=== PATIENT | female | born 1950 | race Caucasian/White ===

== ENCOUNTER 2021-08-15 17:46 | Emergency (ER) | payer MEDICARE, OTHER, SELFPAY ==
--- NOTE | 2021-08-15 17:50 | ED.EAR ---
HPI - Ear Problem General Chief complaint: Ear Stated complaint: ear pain Time Seen by Provider: 08/15/21 17:50 Source: patient and RN notes reviewed History of Present Illness HPI Narrative: Patient is a 70-year-old female who presents the urgent care with complaints of left ear pain. Patient states been off and on for the past 3 to 4 days. She has been taking Zyrtec and Tylenol for the pain. Patient states she does have seasonal allergies and takes Zyrtec off and on. Denies of any other upper respiratory symptoms with the exception of postnasal drainage. Denies of fever, chills, nausea, vomiting. No other acute complaints. No acute distress noted. Patient aware of the plan of care. Some parts of this dictation were generated by voice recognition software and may contain typographical and/or grammatical inaccuracies. Related Data Home Medications Medication Instructions Recorded Confirmed vitamin B complex 1 tablet PO DAILY 02/03/20 08/15/21 glucosamine 750 uc-ponjycoibeg-rtv 1 tablet PO BID 02/17/21 08/15/21 no1 644 mg-C 30 mg-juan 1 mg tablet multivitamin 1 tablet PO DAILY 02/17/21 08/15/21 Allergies Allergy/AdvReac Type Severity Reaction Status Date / Time Sulfa (Sulfonamide Allergy Unknown Rash Verified 08/15/21 17:56 Antibiotics) Review of Systems Review of Systems: CONSTITUTIONAL: Denies fever, chills, or sweats. EYES: Denies visual changes, redness, or discharge. ENT: Denies rhinorrhea, congestion, sore throat. Reports of left otalgia CARDIOVASCULAR: Denies chest pain, palpitations, or edema. RESPIRATORY: Denies cough or dyspnea. GASTROINTESTINAL: Denies abdominal pain, nausea, vomiting, or diarrhea. GENITOURINARY: Denies dysuria or hematuria. SKIN: Denies rash or itching. MUSCULOSKELETAL: Denies back pain, joint pain, or myalgia. NEUROLOGIC: Denies headache, numbness, or weakness. All other systems reviewed are negative, except as documented in HPI. [facility] Past Medical History Medical History (Updated 08/15/21 @ 18:06 by BIJAL Cha) Allergies Breast cancer Cataract Cervical dystonia Cervical vertebral fusion CVA (cerebral vascular accident) Former smoker Hemorrhoids History of TIA (transient ischemic attack) HLD (hyperlipidemia) HTN (hypertension) Obesity (BMI 30-39.9) GUANAKO (obstructive sleep apnea) Osteoarthritis Osteopenia Ruptured cervical disc repaired 2004 TIA (transient ischemic attack) Surgical History Surgical History (Updated 02/17/21 @ 08:41 by Karmen Del Rosario [facility]) H/O foot surgery 1975 History of bilateral mastectomy 1988 History of neck surgery cervical disc surgery 06 and 07 History of skin surgery basal 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 2012 S/P peripheral artery angioplasty with stent placement Left leg Family History Family History (Updated 02/03/20 @ 07:27 by Rosalie Cantu [facility]) Father Lung cancer History of angina Mother Diabetes mellitus Hypertension Sibling Hypertension Heart disease Social History Social History Smoking status: Former smoker Smoking end date: 11/27/74 Alcohol intake: never Comments At the time of my signature, I reviewed and agree with the nursing past medical, surgical, social, and family history. There is no relevant family history pertinent to the patient complaint. Exam Narrative: GENERAL: This is a well-nourished, well-developed patient, in no apparent distress. HEAD: normocephalic, atraumatic. EYES: PERRL. Sclera clear/white. Vision is grossly intact. EARS: External ears normal, auditory canals clear and without drainage, mild to moderate fluid noted behind bilateral TMs without otitis, TMs normal without perforation. Hearing grossly intact. NOSE: External nose normal with no obvious nasal discharge, nares without redness, no rhinorrhea. THROAT: Mucous membranes moist, posterior pharynx clear. Mild postnasal drainage NECK: Chronic torti
[2021-08-15 17:55] VITALS: BP 162/81; PULSE 87; RESP 16; TEMP 36.6; O2SAT 98
== END 2021-08-15 18:10 | disposition home or self-care (01) ==
PROVIDERS: Emergency Provider Nurse Practitioner Family; PCP Internal Medicine
DX: H92.02 Otalgia, left ear (principal); I10 Essential (primary) hypertension; E78.5 Hyperlipidemia, unspecified; Z86.73 Personal history of transient ischemic attack (TIA), and cerebral infarction without residual deficits; Z87.891 Personal history of nicotine dependence
CPT/HCPCS: 99213; G0463

== ENCOUNTER → 2021-12-28 10:04 | Outpatient (CLI) | payer MEDICARE, OTHER, SELFPAY ==
--- NOTE | ~2021-12-28 | XR_ITS ---
XR chest 2V DATE: 12/28/2021 11:00 INDICATION: Personal history of malignant neoplasm of the breast TECHNIQUE: PA and lateral views COMPARISON: 08/28/2017 two-view chest FINDINGS: Normal heart size. No hilar or mediastinal enlargement. The lungs are clear of infiltrate o r consolidation. No pleural effusion or pulmonary vascular congestion. Breast shadows are absent consistent with history of bilateral mastectomy. Status post anterior cervical spine surgical fusion. Diffuse osteopenia. IMPRESSION: Status post bilateral mastectomy; no active cardiopulmonary disease Reviewed, dictated and finalized at location B. [employer]AT[employer] ASSISTANT
--- NOTE | ~2021-12-28 | DEXA_ITS ---
Bone Density Report Name: CUATE DOMINGUEZ Age: 71 Sex: Female Ethnicity: White Date of : 1950 Indication: postmenopausal; screening for osteoporosis; parental hip fracture; height loss; Referring Provider: Devang, Marisela Study: Bone densitometry was performed. Exam Date: December 28, 2021 Accession number: [id number] Bone Density: Region BMD T-score Z-score Classification AP Spine (L2, L3, L4) 1.046 -0.3 2.0 Normal Femoral Neck (Left) 0.696 -1.4 0.5 Osteopenia Total Hip (Left) 0.851 -0.7 0.9 Normal Femoral Neck (Right) 0.727 -1.1 0.8 Osteopenia Total Hip (Right) 0.870 -0.6 1.0 Normal Total Hip Mean 0.861 -0.7 1.0 Normal World Health Organization criteria for BMD impression classify patients as: Normal (T-score at or above -1.0), Osteopenia (T-score between -1.0 and -2.5), or Osteoporosis (T-score at or below -2.5). 10-year Fracture Risk(1): Major Osteoporotic Fracture 15% Hip Fracture 4.2% Reported Risk Factors: [place] (), Neck BMD=0.696, BMI=35.7, parental fracture (1) FRAX(R) Version 3.08. Fracture probability calculated for an untreated patient. Fracture probability may be lower if the patient has received treatment. Previous Exams: Region Exam Age BMD T-score BMD Change BMD Change Date g/cm2 vs Baseline vs Previous AP Spine(L2, L3, L4) 12/28/2021 71 1.046 -0.3 0.131* 0.056* 10/23/2017 67 0.990 -0.8 0.075* 0.012 10/19/2015 65 0.978 -0.9 0.063* 0.032* 10/03/2013 63 0.946 -1.2 0.031* 0.031* 08/12/2011 60 0.915 -1.5 Total Hip(Left) 12/28/2021 71 0.851 -0.7 0.032* 0.027* 10/23/2017 67 0.824 -1.0 0.004 0.021 10/19/2015 65 0.802 -1.1 -0.017 -0.022 10/03/2013 63 0.825 -1.0 0.005 0.005 08/12/2011 60 0.819 -1.0 Total Hip(Right) 12/28/2021 71 0.870 -0.6 -0.013 -0.005 10/23/2017 67 0.875 -0.6 -0.008 0.000 10/19/2015 65 0.875 -0.5 -0.008 -0.010 10/03/2013 63 0.885 -0.5 0.002 0.002 08/12/2011 60 0.883 -0.5 *Denotes significance at 95% confidence level, LSC for AP Spine = 0.022 g/cm2, LSC for Total Hip = 0.027 g/cm2 Clinical Information Provided by Patient: Parent has had a hip fracture Has used the following medications: Vitamin D, Calcium, MTV Patient maximum height was 63 [place]
== END ==
PROVIDERS: PCP Internal Medicine; Visit Provider Nurse Practitioner
DX: Z78.0 Asymptomatic menopausal state (principal); Z85.3 Personal history of malignant neoplasm of breast; M85.89 Other specified disorders of bone density and structure, multiple sites; Z90.13 Acquired absence of bilateral breasts and nipples
CPT/HCPCS: 71046; 77080

== ENCOUNTER → 2023-01-23 10:36 | Outpatient (CLI) | payer MEDICARE, OTHER, SELFPAY ==
--- NOTE | ~2023-01-23 | XR_ITS ---
XR heel RT min 2V 01/23/2023 10:48 Indication: Right heel pain Procedure: 2 views right heel/os calcis Comparison: No prior studies for comparison. Findings: No fracture, subluxation or dislocation. There are prominent calcaneal enthesophytes. No fo reign bodies. Impression: 1: No acute bone or joint abnormality. Reviewed, dictated and finalized at location B. [employer] CONSULTANT Impression: 1: No acute bone or joint abnormality.
== END ==
PROVIDERS: PCP Nurse Practitioner; Visit Provider Nurse Practitioner
DX: M79.671 Pain in right foot (principal)
CPT/HCPCS: 73650

== ENCOUNTER → 2023-04-03 10:48 | Outpatient (CLI) | payer MEDICARE, OTHER, SELFPAY ==
--- NOTE | ~2023-04-03 | XR_ITS ---
EXAMINATION: XR chest 2V 04/03/2023 11:13 INDICATION: Personal history of malignancy. Hypertension. PROCEDURE: 2 view chest COMPARISON: Comparison to multiple prior studies sequentially, with oldest reviewed study dated 08/29. FINDINGS: The lungs are clear. The cardiomediastinal silhouette is within normal limits. There are no pleural effusions. There is no pneumothorax suspected. IMPRESSION: 1: NO ACUTE CARDIOPULMONARY DISEASE. Reviewed, dictated and finalized at location B.
== END ==
PROVIDERS: PCP Internal Medicine; Visit Provider Nurse Practitioner
DX: Z85.3 Personal history of malignant neoplasm of breast (principal)
CPT/HCPCS: 71046

== ENCOUNTER 2023-06-27 17:49 | Emergency (ER) | payer MEDICARE, OTHER, SELFPAY ==
[2023-06-27 18:02] VITALS: BP 116/59; PULSE 86; RESP 18; TEMP 36.5; O2SAT 96
--- NOTE | 2023-06-27 18:05 | ED.EAR ---
HPI - Ear Problem General Chief complaint: Ear Stated complaint: Eaeache Source: patient and RN notes reviewed History of Present Illness HPI Narrative: 72-year-old female presents to urgent care with complaints of left ear pain since yesterday. Patient states today she has taken Tylenol and allergy medicine and denies any ear pain today but states she feels like the medicine is wearing off and the pain will come intermittently. Patient reports ringing in left ear. Patient reports chronic congestion states is been little worse the last couple days. Denies any sore throat, fevers, chills, headache, chest pain, or shortness of breath. Related Data Home Medications Medication Instructions Recorded Confirmed aspirin 325 mg tablet,delayed 81 mg PO DAILY 10/17/22 05/23/23 release ProDentin Advanced Oral Probiotics 1 tablet BYMOUTH DAILY 01/23/23 05/23/23 uftikpyy-nxkjuff-hukh-lutein tablet tablet PO DAILY 01/23/23 05/23/23 turmeric root extract 500 mg 1,000 mg PO DAILY 01/23/23 05/23/23 capsule Allergies Allergy/AdvReac Type Severity Reaction Status Date / Time Sulfa (Sulfonamide Allergy Unknown Rash Verified 06/27/23 18:10 Antibiotics) Review of Systems Review of Systems: CONSTITUTIONAL: Denies fever, chills, or sweats. EYES: Denies visual changes, redness, or discharge. ENT: left ear pain and congestion CARDIOVASCULAR: Denies chest pain, palpitations, or edema. RESPIRATORY: Denies cough or dyspnea. GASTROINTESTINAL: Denies abdominal pain, nausea, vomiting, or diarrhea. GENITOURINARY: Denies dysuria or hematuria. SKIN: Denies rash or itching. MUSCULOSKELETAL: Denies back pain, joint pain, or myalgia. NEUROLOGIC: Denies headache, numbness, or weakness. Pertinent positives per HPI. [facility] Past Medical History Medical History Allergies Breast cancer 1988 Cataract Cervical dystonia 1999 Cervical vertebral fusion COVID-15 December 2021 Foot pain left foot 1975 Former smoker Hemorrhoids History of TIA (transient ischemic attack) March 21, 2019 HLD (hyperlipidemia) HTN (hypertension) Obesity (BMI 30-39.9) GUANAKO (obstructive sleep apnea) 2016 Osteoarthritis right knee 2017 Osteopenia 2010 Peripheral venous insufficiency Ruptured cervical disc repaired 2004 TIA (transient ischemic attack) Surgical History Surgical History H/O foot surgery 1974 History of bilateral mastectomy 1988 History of neck surgery cervical disc surgery and History of skin surgery basal 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 2012 S/P peripheral artery angioplasty with stent placement Left leg Family History Family History Father Lung cancer History of angina Mother Diabetes mellitus Hypertension Sibling Hypertension Heart disease Social History Social History Smoking status: Former smoker Smoking end date: 11/27/74 Alcohol intake: never Substance use: never Substance use type: does not use Lack of Transportation: No Lack of Food: Never True Current Housing: I Have Housing Concerned About Future Housing: No Difficulty Paying Gas/Electric Bills: No Difficulty Paying for Meds: No Currently Unemployed: No Education: Bachelor's Degree Difficulty w/ Childcare or Family Care: No Living arrangements: with family Additional living arrangements comments: Occupation/Education: retired Gender identity (if verbalized by the patient): Female Sexual Orientation (if Verbalized by the Patient): Straight or Heterosexual Agree to blood products: Yes Comments At the time of my signature, I reviewed and agree with the nursing past medical, surgical, social, and family history. There is no relevant family history pertinent to the p
== END 2023-06-27 18:12 | disposition home or self-care (01) ==
PROVIDERS: Emergency Provider Nurse Practitioner Family; PCP Nurse Practitioner
DX: H65.192 Other acute nonsuppurative otitis media, left ear (principal); Z87.891 Personal history of nicotine dependence; E78.5 Hyperlipidemia, unspecified; I10 Essential (primary) hypertension; E66.9 Obesity, unspecified; Z68.35 Body mass index [BMI] 35.0-35.9, adult; M17.11 Unilateral primary osteoarthritis, right knee; M85.80 Other specified disorders of bone density and structure, unspecified site; I87.2 Venous insufficiency (chronic) (peripheral); Z86.73 Personal history of transient ischemic attack (TIA), and cerebral infarction without residual deficits; Z86.16 Personal history of COVID-19; Z85.3 Personal history of malignant neoplasm of breast; Z90.13 Acquired absence of bilateral breasts and nipples; Z95.820 Peripheral vascular angioplasty status with implants and grafts; Z79.82 Long term (current) use of aspirin
CPT/HCPCS: 99213; G0463

== ENCOUNTER 2023-09-12 15:00 | Outpatient (RCR) | payer MEDICARE, OTHER, SELFPAY ==
--- NOTE | 2023-08-08 09:51 | OPREHPOC ---
Outpatient Therapy Plan of Care This is a Multidisciplinary Plan of Care that may contain components documented by all disciplines (PT, OT, and ST.) PT Goal 1 Goal Sierra with HEP Target Visit 4 PT Problem 2 PT Problem #2 Impaired Range of Motion PT Goal 1 Goal Improve rosa hip abduction ROM to 45 degrees to reduce acetabular impingement with motion Target Visit 8 PT Problem 3 PT Problem #3 Impaired Flexibility PT Goal 1 Goal Improve rosa HS 90/90 to -25 degrees to reduce asymmetrical pull on pelvis and back Target Visit 8 PT Goal 2 Goal Demonstrate minimal piriformis restriction bilaterally to reduce sciatic nerve compression Target Visit 8 PT Problem 4 PT Problem #4 Impaired Range of Motion PT Goal 1 Goal Patient will demonstrate ability to extend past neutral in spine with no radicular pain indicating lumbar decompression and postural stability Target Visit 8
--- NOTE | 2023-08-08 09:51 | PTOPEVAL1 ---
Assessment and note entered by Marcus Negron, PT Evaluation Information Assessment Status Evaluation Diagnosis Low back pain Onset 11/27/22 Subjective Information Reports that she has been having low back and hip pain on right side with history of cervical dystonia. She has also been having foot pain in the last 8 months. Denies any history of falls or trauma. Pain is radiating between hip and foot and feels like similar entities. She does get pain at night, and with activity. She purchased a new matteress and has seen some improvement. Reported Pain Level Pain Score 6: Self Report Assessment PT Clinical Summary Patient presents with signs and symptoms consistent with lumbar stenosis and sciatic nerve radiculopathy. She is demonstrating functional hip mobility deficits which are likely contributed to by postural imbalance secondary to cervical dystomia and R deviation. She will benefit from skilled therapy to address these deficits for improved pain and mobility. Plan of Care Interventions Gait Training,Hot Pack/Cold Pack,Manual Therapy, Neuro Re-education,Patient/Caregiver Education, Therapeutic Activities,Therapeutic Exercise PT Services Indicated Yes Treatment Frequency and 2x/week for 4 weeks Duration These treatments will address the objective and functional deficits as defined above. The patient will be advanced safely and appropriately in order for the patient to progress towards his/her prior level of function. Additional exercises will be introduced and as well as a comprehensive home exercise program upon discharge, if needed, ?to ensure carryover of functional gains achieved in the clinic. This treatment plan has been reviewed and agreement upon by the patient.
--- NOTE | 2023-09-12 15:55 | OPREHPOC ---
Outpatient Therapy Plan of Care This is a Multidisciplinary Plan of Care that may contain components documented by all disciplines (PT, OT, and ST.) PT Goal 1 Goal Kay with HEP Target Visit 4 Progress Met PT Problem 2 PT Problem #2 Impaired Range of Motion PT Goal 1 Goal Improve rosa hip abduction ROM to 45 degrees to reduce acetabular impingement with motion Target Visit 8 Progress Partially Met Comment Withing functional range. Minimal deficit noted. PT Problem 3 PT Problem #3 Impaired Flexibility PT Goal 1 Goal Improve rosa HS 90/90 to -25 degrees to reduce asymmetrical pull on pelvis and back Target Visit 8 Progress Met PT Goal 2 Goal Demonstrate minimal piriformis restriction bilaterally to reduce sciatic nerve compression Target Visit 8 Progress Met PT Problem 4 PT Problem #4 Impaired Range of Motion PT Goal 1 Goal Patient will demonstrate ability to extend past neutral in spine with no radicular pain indicating lumbar decompression and postural stability Target Visit 8 Progress Met
--- NOTE | 2023-09-12 15:56 | PTOPDC ---
Assessment and note entered by Marcus Negron, PT Discharge Information Assessment Status Discharge Diagnosis Low back pain Onset 11/27/22 Subjective Information Reports that she had an injection in her heel which has really helped with pain and improved her walking. Combined with exercises and stretching she is feeling much better overall. Feels comfortable with discharge to [facility] at this time. Reported Pain Level Pain Score 1: Self Report Assessment PT Clinical Summary Patient has met all goals for therapy at this time and is suitable for discharge to [facility] at this time . Patient has reflected excellent compliance. Plan of Care PT Services Indicated No
== END 2023-09-13 09:59 | disposition home or self-care (01) ==
LOC: ANHGOSHPT 15:00
PROVIDERS: PCP Nurse Practitioner; Visit Provider Nurse Practitioner
DX: M54.50 Low back pain, unspecified (principal)
CPT/HCPCS: 97110; 97112; 97116; 97140; 97161; 97530

== ENCOUNTER 2023-09-28 01:20 | Day surgery (SDC) | payer MEDICARE, OTHER, SELFPAY ==
[2023-09-14 14:09] VITALS: BMI 35.8
--- NOTE | 2023-09-27 12:44 | PM.HPGS ---
History of Present Illness History of Present Illness Consent: Risks, benefits, and alternatives have been discussed and questions answered. Patient agrees to proceed with procedure. Chief complaint: Dysphagia,unspecifed Narrative: Melissa Hayward is a 73 year old female Referred for endoscopy due to difficulty with swallowing. For quite some time she has had difficulty swallowing solid foods such as pasta and meat. It seems to get hung up just beyond her throat. She needs to stop eating and wait for the past. Review of Systems Review of Systems: All systems reviewed & are unremarkable except as noted in HPI and below PMFSH Past Medical History Medical History Allergies Breast cancer 1988 Cataract Cervical dystonia 1999 Cervical vertebral fusion COV-15 December 2021 Foot pain left foot 1974 Former smoker Hemorrhoids History of TIA (transient ischemic attack) March 21, 2019 HLD (hyperlipidemia) HTN (hypertension) Obesity (BMI 30-39.9) GUANAKO (obstructive sleep apnea) 2016 Osteoarthritis right knee 2017 Osteopenia 2010 Peripheral venous insufficiency Ruptured cervical disc repaired 2004 TIA (transient ischemic attack) Surgical History Surgical History H/O foot surgery 1974 History of bilateral mastectomy 1988 History of neck surgery cervical disc surgery and 07 History of skin surgery basal 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 2012 S/P peripheral artery angioplasty with stent placement Left leg Family History Family History Father Lung cancer History of angina Mother Diabetes mellitus Hypertension Sibling Hypertension Heart disease Social History Social History Smoking status: Former smoker Smoking end date: 11/27/74 Alcohol intake: current Substance use: never Substance use type: does not use Lack of Transportation: No Lack of Food: Never True Current Housing: I Have Housing Concerned About Future Housing: No Difficulty Paying Gas/Electric Bills: No Difficulty Paying for Meds: No Currently Unemployed: No Education: Bachelor's Degree Difficulty w/ Childcare or Family Care: No Living arrangements: with family Additional living arrangements comments: Occupation/Education: retired Gender identity (if verbalized by the patient): Female Sexual Orientation (if Verbalized by the Patient): Straight or Heterosexual Spiritual care concerns: No Agree to blood products: Yes Meds Home Medications and Allergies Home Medications Medication Instructions Recorded Confirmed Type ProDentin Advanced Oral Probiotics 2 tablet BYMOUTH DAILY 01/23/23 09/28/23 History fqdhheix-pnohzne-gegq-lutein tablet 1 tablet PO DAILY 01/23/23 09/28/23 History CPAP Equipment #1 ea 05/19/23 09/28/23 Rx evolocumab 140 mg/mL subcutaneous See Rx Instructions .Route 07/24/23 09/28/23 Rx pen injector (Francisco Kamara) .COMPLEX #2 mL fluticasone propionate 50 1 spray intranasal BID #16 grams 07/24/23 09/28/23 Rx mcg/actuation nasal spray,suspension glucosamine-chondroitin 250 mg-200 1 tablet PO DAILY 07/24/23 09/28/23 History mg tablet (Osteo Bi-Flex) CPAP Pressure Change #1 ea 07/26/23 09/28/23 Rx lisinopril 10 mg tablet 10 mg PO DAILY #90 tabs 08/21/23 09/28/23 Rx aspirin 81 mg tablet 81 mg PO DAILY 09/14/23 09/28/23 History Allergies Allergy/AdvReac Type Severity Reaction Status Date / Time Sulfa (Sulfonamide Allergy Intermediate Rash Verified 09/28/23 08:22 Antibiotics) Exam Const: General: alert Orientation/consciousness: patient oriented x3 Resp: Auscultation: clear to auscultation bilaterally Cardio: Rhythm: regular rhythm GI: GI Palp: Yes Soft to palpation and No Tenderness to palpation present (GI) Neuro
[2023-09-28 08:27] VITALS: BP 169/86; PULSE 81; RESP 18; TEMP 35.9; O2SAT 97
[2023-09-28] MEDS: LACTATED RINGERS 1,000 ML 150 ML IV CONT (08:35)
--- NOTE | 2023-09-28 09:10 | WPDANESEPPF ---
Anes - Initial Pre Proc Eval Procedure: Operation Date: 09/28/23 09:30 Proposed Procedures p Esophagogastroduodenoscopy - Erick Lang MD Date/Time: 09/28/23 09:10 Surgeon: Erick Lang MD Pre Op Diagnosis: Dysphagia,unspecifed Patient Data Age: 73 Gender: F Height: 1.6 m Weight: 91.1 kg Last Vital Signs Temp 96.7 F L 09/28/23 08:27 Pulse 81 09/28/23 08:27 Resp 18 09/28/23 08:27 BP 169/86 H 09/28/23 08:27 Pulse Ox 97 09/28/23 08:27 O2 Del Method Room Air 09/28/23 08:27 Allergies Allergy/AdvReac Type Severity Reaction Status Date / Time Sulfa (Sulfonamide Allergy Intermediate Rash Verified 09/28/23 08:22 Antibiotics) Home Medications Medication Instructions Recorded Confirmed Type ProDentin Advanced Oral Probiotics 2 tablet BYMOUTH DAILY 01/23/23 09/28/23 History mmbblpfc-okbaapy-jbyo-lutein tablet 1 tablet PO DAILY 01/23/23 09/28/23 History CPAP Equipment #1 ea 05/19/23 09/28/23 Rx evolocumab 140 mg/mL subcutaneous See Rx Instructions .Route 07/24/23 09/28/23 Rx pen injector (Francisco Kamara) .COMPLEX #2 mL fluticasone propionate 50 1 spray intranasal BID #16 grams 07/24/23 09/28/23 Rx mcg/actuation nasal spray,suspension glucosamine-chondroitin 250 mg-200 1 tablet PO DAILY 07/24/23 09/28/23 History mg tablet (Osteo Bi-Flex) CPAP Pressure Change #1 ea 07/26/23 09/28/23 Rx lisinopril 10 mg tablet 10 mg PO DAILY #90 tabs 08/21/23 09/28/23 Rx aspirin 81 mg tablet 81 mg PO DAILY 09/14/23 09/28/23 History Patient hx anesthesia problems: none Family hx anesthesia problems: none Results Review: All pre-operative results and documents have been reviewed as part of the pre-operative evaluation. [facility] Past Medical History Medical History Allergies Breast cancer 1988 Cataract Cervical dystonia 1999 Cervical vertebral fusion COVID-15 December 2021 Foot pain left foot 1974 Former smoker Hemorrhoids History of TIA (transient ischemic attack) March 21, 2019 HLD (hyperlipidemia) HTN (hypertension) Obesity (BMI 30-39.9) GUANAKO (obstructive sleep apnea) 2016 Osteoarthritis right knee 2017 Osteopenia 2010 Peripheral venous insufficiency Ruptured cervical disc repaired 2004 TIA (transient ischemic attack) Surgical History Surgical History H/O foot surgery 1974 History of bilateral mastectomy 1988 History of neck surgery cervical disc surgery and 07 History of skin surgery basal 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 2012 S/P peripheral artery angioplasty with stent placement Left leg Family History Family History Father Lung cancer History of angina Mother Diabetes mellitus Hypertension Sibling Hypertension Heart disease Social History Social History Smoking status: Former smoker Smoking end date: 11/27/74 Alcohol intake: current Substance use: never Substance use type: does not use Lack of Transportation: No Lack of Food: Never True Current Housing: I Have Housing Concerned About Future Housing: No Difficulty Paying Gas/Electric Bills: No Difficulty Paying for Meds: No Currently Unemployed: No Education: Bachelor's Degree Difficulty w/ Childcare or Family Care: No Living arrangements: with family Additional living arrangements comments: Occupation/Education: retired Gender identity (if verbalized by the patient): Female Sexual Orientation (if Verbalized by the Patient): Straight or Heterosexual Spiritual care concerns: No Agree to blood products: Yes Anes - Eval Final PreProcedure Day of Procedure 09/28/23 09:10 Patient weight: obese Heart: regular rate and rhythm Lungs: clear to auscultation Airway: Mallampati scale class III Neur
[2023-09-28 09:48] VITALS: BP 122/53; PULSE 79; RESP 20; O2SAT 99
[2023-09-28 09:58] VITALS: BP 133/64; PULSE 77; RESP 21; O2SAT 98
[2023-09-28 10:08] VITALS: BP 137/63; PULSE 74; RESP 24; O2SAT 99
== END 2023-09-28 10:13 | disposition home or self-care (01) ==
PROVIDERS: PCP Nurse Practitioner; Visit Provider Internal Medicine Gastroenterology
PROC: 0DJ08ZZ Inspection of Upper Intestinal Tract, Via Natural or Artificial Opening Endoscopic (ICD-10-PCS; CPT 43235; principal; 2023-09-28 09:30)
DX: R13.19 Other dysphagia (principal); K21.00 Gastro-esophageal reflux disease with esophagitis, without bleeding; K22.2 Esophageal obstruction; K44.9 Diaphragmatic hernia without obstruction or gangrene; I10 Essential (primary) hypertension; E78.5 Hyperlipidemia, unspecified; G47.33 Obstructive sleep apnea (adult) (pediatric); Z87.891 Personal history of nicotine dependence; Z99.89 Dependence on other enabling machines and devices; Z79.82 Long term (current) use of aspirin; Z95.820 Peripheral vascular angioplasty status with implants and grafts; Z85.3 Personal history of malignant neoplasm of breast; Z86.73 Personal history of transient ischemic attack (TIA), and cerebral infarction without residual deficits; Z80.1 Family history of malignant neoplasm of trachea, bronchus and lung; E66.9 Obesity, unspecified; Z68.35 Body mass index [BMI] 35.0-35.9, adult
CPT/HCPCS: 43239; 43249; 87081; 88305; C1726; J2704; J7120

== ENCOUNTER 2024-04-30 08:00 | Outpatient (RCR) | payer MEDICARE, OTHER, SELFPAY ==
--- NOTE | 2024-02-20 15:18 | PTOPEVAL1 ---
Assessment and note entered by Marcus Negron, PT Evaluation Information Assessment Status Evaluation Diagnosis Unsteadiness on feet, Generalized weakness Onset December 2023 Subjective Information Reports that she is noticing some weakness when performing stairs or distance of walking. She is sore and painful in the morning when she first tries to get up and going. She is limited a bit by pain but is also unsure of herself. Feels she is getting a biting feeling in her right heel. Feels a tightness around her ankle as well. Denies any falls in the past few months. Reports that she is getting lower back pain and sciatica at this time as well. Reported Pain Level Pain Score 8: Self Report Assessment PT Clinical Summary Patient presents with baseline deconditioning, balance weakness, and poor functional UE strength at this time. Patient will benefit from skilled therapy to address these deficits. She will benefit from skilled therapy to address full body conditioning needs to improve balance and functional mobility moving forward. Plan of Care Interventions Gait Training,Manual Therapy,Neuro Re-education, Therapeutic Activities,Therapeutic Exercise PT Services Indicated Yes Treatment Frequency and 2x/week for 10 visits Duration These treatments will address the objective and functional deficits as defined above. The patient will be advanced safely and appropriately in order for the patient to progress towards his/her prior level of function. Additional exercises will be introduced and as well as a comprehensive home exercise program upon discharge, if needed, ?to ensure carryover of functional gains achieved in the clinic. This treatment plan has been reviewed and agreement upon by the patient.
--- NOTE | 2024-02-20 15:18 | OPREHPOC ---
Outpatient Therapy Plan of Care This is a Multidisciplinary Plan of Care that may contain components documented by all disciplines (PT, OT, and ST.) PT Problem 1 PT Problem #1 Knowledge Deficit PT Goal 1 Goal [place] with HEP Target Visit 4 PT Problem 2 PT Problem #2 Pain PT Goal 1 Goal Report no pain with sit to stand after sitting for greater than 30 minutes Target Visit 10 PT Problem 3 PT Problem #3 Impaired Strength PT Goal 1 Goal Improve rosa hip abduction strength to 4+/5 to improve lateral stability with ADL performance Target Visit 10 PT Goal 2 Goal Improve rosa shoulder external rotation strength to 4+/5 to improve shoulder stability and ADL/self care performance Target Visit 10 PT Problem 4 PT Problem #4 Impaired Balance PT Goal 1 Goal Patient will demonstrate ability to maintain stance on uneven surface for 1 minute without LOB for improved stability and fall risk reduction PT Problem 5 PT Problem #5 Impaired Functional Mobil PT Goal 1 Goal Patient will tolerate 15 minutes of resistance and cardiovascular exercise for gross endurance improvement Target Visit 10
--- NOTE | 2024-03-07 07:59 | PCPTNOTE ---
Patient not seen 03/06/24 due to therapist out sick.
--- NOTE | 2024-03-26 09:14 | OPREHPOC ---
Outpatient Therapy Plan of Care This is a Multidisciplinary Plan of Care that may contain components documented by all disciplines (PT, OT, and ST.) PT Problem 1 PT Problem #1 Knowledge Deficit PT Goal 1 Goal [place] with HEP Target Visit 4 Progress Met PT Problem 2 PT Problem #2 Pain PT Goal 1 Goal Report no pain with sit to stand after sitting for greater than 30 minutes Target Visit 14 Progress Partially Met Comment Inconsistent but improving over past couple weeks PT Problem 3 PT Problem #3 Impaired Strength PT Goal 1 Goal Improve rosa hip abduction strength to 4+/5 to improve lateral stability with ADL performance Target Visit 14 Progress Partially Met PT Goal 2 Goal Improve rosa shoulder external rotation strength to 4+/5 to improve shoulder stability and ADL/self care performance Target Visit 14 Progress Partially Met PT Problem 4 PT Problem #4 Impaired Balance PT Goal 1 Goal Patient will demonstrate ability to maintain stance on uneven surface for 1 minute without LOB for improved stability and fall risk reduction Target Visit 14 Progress Partially Met PT Problem 5 PT Problem #5 Impaired Functional Mobil PT Goal 1 Goal Patient will tolerate 15 minutes of resistance and cardiovascular exercise for gross endurance improvement Target Visit 14 Progress Partially Met Comment Currently at approximately 10 minutes
--- NOTE | 2024-03-26 09:14 | PTOPPROG ---
Assessment and note entered by Marcus Negron, PT Evaluation Information Assessment Status Progress Diagnosis Unsteadiness on feet, Generalized weakness Onset December 2023 Subjective Information Patient reports that she feels therapy has significantly helped at this time. She has had trouble with consistency of pain symptoms but feels she is on the right track. Would like a little more guidance carrying forward to continue to progress stabilization and mobility for residential improvement. Assessment PT Clinical Summary We upgraded HEP this date to emphasize lateral hip strengthening and single leg stability for ADLs and gait. She saw great hip ROM improvement from evaluation and shows continued potential for improvement. Will continue to benefit from skilled therapy emphasizing body mechanics and lateral hip stability. Plan of Care Interventions Gait Training,Manual Therapy,Neuro Re-education, Therapeutic Activities,Therapeutic Exercise PT Services Indicated Yes Treatment Frequency and 2x/week for 10 visits Duration These treatments will address the objective and functional deficits as defined above. The patient will be advanced safely and appropriately in order for the patient to progress towards his/her prior level of function. Additional exercises will be introduced and as well as a comprehensive home exercise program upon discharge, if needed, ?to ensure carryover of functional gains achieved in the clinic. This treatment plan has been reviewed and agreement upon by the patient.
--- NOTE | 2024-03-26 09:14 | PTOPPROG ---
Assessment and note entered by Marcus Negron, PT Evaluation Information Assessment Status Progress Diagnosis Unsteadiness on feet, Generalized weakness Onset December 2023 Subjective Information Patient reports that she feels therapy has significantly helped at this time. She has had trouble with consistency of pain symptoms but feels she is on the right track. Would like a little more guidance carrying forward to continue to progress stabilization and mobility for group home improvement. Assessment PT Clinical Summary We upgraded HEP this date to emphasize lateral hip strengthening and single leg stability for ADLs and gait. She saw great hip ROM improvement from evaluation and shows continued potential for improvement. Will continue to benefit from skilled therapy emphasizing body mechanics and lateral hip stability. Plan of Care Interventions Gait Training,Manual Therapy,Neuro Re-education, Therapeutic Activities,Therapeutic Exercise PT Services Indicated Yes Treatment Frequency and 1x/week for 4 visits Duration These treatments will address the objective and functional deficits as defined above. The patient will be advanced safely and appropriately in order for the patient to progress towards his/her prior level of function. Additional exercises will be introduced and as well as a comprehensive home exercise program upon discharge, if needed, ?to ensure carryover of functional gains achieved in the clinic. This treatment plan has been reviewed and agreement upon by the patient.
--- NOTE | 2024-04-30 08:55 | OPREHPOC ---
Outpatient Therapy Plan of Care This is a Multidisciplinary Plan of Care that may contain components documented by all disciplines (PT, OT, and ST.) PT Problem 1 PT Problem #1 Knowledge Deficit PT Goal 1 Goal [place] with HEP Target Visit 4 Progress Met PT Problem 2 PT Problem #2 Pain PT Goal 1 Goal Report no pain with sit to stand after sitting for greater than 30 minutes Target Visit 14 Progress Met PT Problem 3 PT Problem #3 Impaired Strength PT Goal 1 Goal Improve rosa hip abduction strength to 4+/5 to improve lateral stability with ADL performance Target Visit 14 Progress Met PT Goal 2 Goal Improve rosa shoulder external rotation strength to 4+/5 to improve shoulder stability and ADL/self care performance Target Visit 14 Progress Partially Met Comment Needs continued reinforcement with HEP PT Problem 4 PT Problem #4 Impaired Balance PT Goal 1 Goal Patient will demonstrate ability to maintain stance on uneven surface for 1 minute without LOB for improved stability and fall risk reduction Target Visit 14 Progress Met PT Problem 5 PT Problem #5 Impaired Functional Mobil PT Goal 1 Goal Patient will tolerate 15 minutes of resistance and cardiovascular exercise for gross endurance improvement Target Visit 14 Progress Met
--- NOTE | 2024-04-30 08:55 | PTOPDC ---
Assessment and note entered by Marcus Negron, PT Evaluation Information Assessment Status Discharge Diagnosis Unsteadiness on feet, Generalized weakness Onset December 2023 Subjective Information Reports that she has started biking every morning and has been taking turmeric and multivitamins more regularly. Pain has been down but she is still sore by the end of the day and stretching has seemed to really help. Feels ready for discharge at this time to [facility]. Reported Pain Level Pain Score 2,2: Self Report Assessment PT Clinical Summary Patient met all goals for therapy and is suitable for discharge to [facility] at this time. Patient is compliant and consistent with HEP. Plan of Care PT Services Indicated D/C to HEP
== END 2024-04-30 11:30 | disposition home or self-care (01) ==
LOC: ANHGOSHPT 08:00
PROVIDERS: PCP Family Medicine; Visit Provider Nurse Practitioner
DX: R26.81 Unsteadiness on feet (principal)
CPT/HCPCS: 97110; 97112; 97140; 97161; 97530

== ENCOUNTER 2024-06-25 15:07 | Outpatient (CLI) | payer MEDICARE, OTHER, SELFPAY ==
--- NOTE | ~2024-06-25 | MR_ITS ---
EXAMINATION: MR ankle RT wo con DATE: 06/25/2024 15:54 INDICATION: Achilles tendinitis TECHNIQUE: Magnetic resonance imaging (MRI) of the right ankle was performed without intravenous cont rast. Sequences included sagittal, coronal, and axial proton-density weighted fast spin echo without and with fat saturation. COMPARISON: None. FINDINGS: Medial ankle ligaments: Deep deltoid ligament and the spring ligament complex are normal. There is thickening of the superfic ial deltoid ligament without associated edema consistent with scarring related to chronic sprain. Lateral ankle ligaments: The anterior and posterior inferior tibiofibular ligaments are normal. The anterior talofibular, calc aneofibular and posterior talofibular ligaments are normal. Tendons: There is prominent thickening and mild increased signal in the distal 5 cm the Achilles tendon consis tent with moderate tendinosis without discrete tear. Small enthesophytes at the calcaneal insertion o f the distal Achilles tendon. The peroneus longus and brevis tendons are normal. The tibialis anterio r and extensor hallucis longus and extensor digitorum longus tendons are normal. The tibialis posteri or, flexor digitorum longus and flexor hallucis longus tendons are normal. Plantar fascia: Additional small enthesophytes at the calcaneal origin of the plantar aponeurosis. There is mild thic kening, minimal increased signal and small internal enthesopathic ossicle at the proximal central com ponent of the plantar aponeurosis without associated marrow or surrounding soft tissue edema to sugge st acute plantar fasciitis. Bones/other: Mild marrow edema at the calcaneal insertion of the distal Achilles tendon. Mild osteoarthritis with subarticular edema-like signal change at the second and to lesser degree third tarsal metatarsal join ts. Bone marrow signal is otherwise normal. No fracture or pathologic marrow replacing process. Fluid: Physiologic amount fluid in the joint spaces. Small amount of fluid in the in the retrocalcaneal burs a consistent with bursitis. IMPRESSION: 1. Moderate distal Achilles tendinosis/enthesitis without tear and with adjacent mild retrocalcaneal bursitis. 2. Chronic mild enthesopathy at the calcaneal origin of the plantar aponeurosis. Reviewed, dictated and finalized at location A. IMPRESSION: 1. Moderate distal Achilles tendinosis/enthesitis without tear and with adjacen t mild retrocalcaneal bursitis. 2. Chronic mild enthesopathy at the calcaneal origin of the plantar aponeurosis .
== END 2024-06-25 15:08 ==
PROVIDERS: PCP Nurse Practitioner; Visit Provider Podiatrist Foot & Ankle Surgery
DX: M76.61 Achilles tendinitis, right leg (principal); M77.31 Calcaneal spur, right foot
CPT/HCPCS: 73721

== ENCOUNTER 2024-09-24 10:00 | Outpatient (RCR) | payer MEDICARE, OTHER, SELFPAY ==
[2024-08-22 11:50] VITALS: BP_SYST 100
--- NOTE | 2024-08-22 12:16 | OPREHPOC ---
Outpatient Therapy Plan of Care This is a Multidisciplinary Plan of Care that may contain components documented by all disciplines (PT, OT, and ST.) PT Goal 1 Goal / Goal Update Pt will be independent in HEP Pt will verbalize understanding of diagnosis and prognosis Target Visit 5 PT Problem 2 PT Problem #2 Pain PT Goal 1 Goal / Goal Update Pt will report greatest pain level at 5/10 or less to improve ADLs and activities Target Visit 5 PT Goal 2 Goal / Goal Update Pt will report greatest pain level at 3/10 or less to improve ADLs and activities Target Visit 10 PT Problem 3 PT Problem #3 Impaired Range of Motion PT Goal 1 Goal / Goal Update ROM RUE actively flexion of 110 and abduction of 100 Target Visit 5 PT Goal 2 Goal / Goal Update RUE active ROM flexion 120 and abduction 120 Target Visit 10 PT Goal 1 Goal / Goal Update PT will demo improved cervical positioning by 25% Target Visit 10
--- NOTE | 2024-08-22 12:16 | PTOPEVAL1 ---
Assessment and note entered by Sully Zhang, PT Evaluation Information Assessment Status Evaluation Diagnosis pain in right shoulder ICD-10 Condition Codes (PT) M25.511,Weakness R53.1 Other ICD-10 Condition Codes ( Abnormal posture, stiffness right shoulder PT) Subjective Information Pt reports she will have pain in shoulder followed by weakness at times. Has been on and off a few months but is consistent the last 4-5 weeks. States lifting increases pain and weakness sensation. Reports pain in the front of the shoulder but also in the shoulder/neck area. 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 Has had to modify multiple activities due to her cervical dystonia. Will have tingling in RUE At times as well, LUE not as much Reported Pain Level Pain Score 3: Self Report Assessment PT Clinical Summary Pt presents with right shoulder pain that has been persistent the last 4-5 weeks. Relevant co- morbidities that may be effecting the right shoulder include cervical dystonia, prior history of bilat mastectomy and possible tissue shortening . Pt demos decreased active ROM but greatly increased passive ROM comparatively with soft tissue and pain end-ranges. Demo's abnormal posture with right scapular rounding and elevation likely related to dystonia. Demo's decreased strength in RTC muscles as well but negative special testing for supraspinatus rupture or labral involvement. Pt will benefit from physical therapy to address deficits, and improve function with less pain. Plan of Care Interventions Electrical Stimulation,Hot Pack/Cold Pack,Manual Therapy,Neuro Re-education,Therapeutic Activities, Therapeutic Exercise,Self-Care/Home Management, Other Other Interventions Ana, BRENDEN PT Services Indicated Yes Treatment Frequency and 2x weekly x 10 Duration These treatments will address the objective and functional deficits as defined above. The patient will be advanced safely and appropriately in order for the patient to progress towards his/her prior level of function. Additional exercises will be introduced and as well as a comprehensive home exercise program upon discharge, if needed, ?to ensure carryover of functional gains achieved in the clinic. This treatment plan has been reviewed and agreement upon by the patient.
--- NOTE | 2024-09-19 08:44 | PCPTNOTE ---
Patient is out of town still and request to cancel treatment.
[2024-09-24 10:07] VITALS: BP_SYST 130
--- NOTE | 2024-09-24 11:07 | PTOPDC ---
Assessment and note entered by Marcus Negron, PT Evaluation Information Assessment Status Progress Diagnosis pain in right shoulder ICD-10 Condition Codes (PT) M25.511,Weakness R53.1 Other ICD-10 Condition Codes ( Abnormal posture, stiffness right shoulder PT) Subjective Information Reports that overalls he has had some improvement in pain and mobility with exercises. Feels that eye tracking and scapular activity has helped. Pain at this point seems to fluctuate based on activity and driving. She will be undergoing foot surgery and wants to hold of on therapy at this time. Reported Pain Level Pain Score 6,3: Self Report Pain Score 5,5: Self Report Assessment PT Clinical Summary Patient has shown significant improvement in shoulder strength and ROM at this time. She does still struggle with discomfort and pain based on activity at this time. She has a good understanding of [facility] and is suitable for discharge to [facility] at this time in anticipation of foot surgery. Plan of Care PT Services Indicated No
== END 2024-09-25 09:15 | disposition home or self-care (01) ==
LOC: ANHGOSHPT 10:00
PROVIDERS: PCP Internal Medicine; Visit Provider Nurse Practitioner
DX: M25.511 Pain in right shoulder (principal); R53.1 Weakness
CPT/HCPCS: 97110; 97140; 97163

== ENCOUNTER 2025-01-16 12:30 | Outpatient (RCR) | payer MEDICARE, OTHER, SELFPAY ==
--- NOTE | 2024-12-10 15:02 | OPREHPOC ---
Outpatient Therapy Plan of Care This is a Multidisciplinary Plan of Care that may contain components documented by all disciplines (PT, OT, and ST.) PT Problem 1 PT Problem #1 Knowledge Deficit PT Goal 1 Goal / Goal Update Pt to report pain no greater 3/10 in the last week . PT Problem 2 PT Problem #2 Impaired Range of Motion PT Goal 1 Goal / Goal Update 1. Pt to increase rosa active ankle dorsiflexion to 10 deg rosa PT Problem 3 PT Problem #3 Impaired Gait PT Goal 1 Goal / Goal Update 1. Pt to demonstrate equal stride length with ambulation 2. Pt to improve 2 min walk distance from 350ft to 400ft. 3. pt to demonstrate heel strike during ambulation
--- NOTE | 2024-12-10 15:02 | PTOPEVAL1 ---
Assessment and note entered by Nathan Bergeron, PT, DPT Evaluation Information Assessment Status Evaluation Diagnosis R Achilles tendon repair ICD-10 Condition Codes (PT) Pain in left ankle and joints of left foot M25.572 ,Difficulty Walking R26.2,Abnormalities of gait and mobility R26.9,Encounter for other orthopedic aftercare Z47.89 Onset 10/04/24 Subjective Information Pt reports chronic ankle pain with a history of a R heel spur. Had bone spur removal and [id number] tendon repair on 10/04/24. Was NWB for 6 weeks and is not WBAT. Has 2 steps to get into her home. Reported Pain Level Pain Score 4: Self Report Assessment PT Clinical Summary Pt presents to therapy today for her initial evaluation following a R Achilles tendon repair and bone spur removal. Today she demonstrates decreased ankle motion in all planes and decreased strength. Her decreased ROM leads to significant deviations with ambulation. She is increased soft tissue density surrounding the R heel. Skilled therapy services are indicated to address deficits noted above and to return to prior level of function. Plan of Care Interventions Electrical Stimulation,Gait Training,Hot Pack/Cold Pack,Manual Lymph Drainage,Neuro Re-education, Patient/Caregiver Education,Prosthetic Training PT Services Indicated Yes Treatment Frequency and 2x/wk for 10 visits Duration These treatments will address the objective and functional deficits as defined above. The patient will be advanced safely and appropriately in order for the patient to progress towards his/her prior level of function. Additional exercises will be introduced and as well as a comprehensive home exercise program upon discharge, if needed, ?to ensure carryover of functional gains achieved in the clinic. This treatment plan has been reviewed and agreement upon by the patient.
--- NOTE | 2025-01-09 10:49 | PCPTNOTE ---
Patient was cancelled 01/09/25 due to therapist out with illness.
--- NOTE | 2025-01-16 14:25 | OPREHPOC ---
Outpatient Therapy Plan of Care This is a Multidisciplinary Plan of Care that may contain components documented by all disciplines (PT, OT, and ST.) PT Problem 1 PT Problem #1 Knowledge Deficit PT Goal 1 Goal / Goal Update Pt to report pain no greater 3/10 in the last week . 01/16/25: 1. progressing, 6/10 Progress Not Met PT Problem 2 PT Problem #2 Impaired Range of Motion PT Goal 1 Goal / Goal Update 1. Pt to increase rosa active ankle dorsiflexion to 10 deg rosa 01/16/25: progressing to 8 deg PT Problem 3 PT Problem #3 Impaired Gait PT Goal 1 Goal / Goal Update 1. Pt to demonstrate equal stride length with ambulation 2. Pt to improve 2 min walk distance from 350ft to 400ft. 3. pt to demonstrate heel strike during ambulation 01/16/25: 1-3. met
--- NOTE | 2025-01-16 14:25 | PTOPDC ---
Assessment and note entered by Nathan Bergeron, PT, DPT Evaluation Information Assessment Status Progress Diagnosis R Achilles tendon repain ICD-10 Condition Codes (PT) Pain in left ankle and joints of left foot M25.572 ,Difficulty Walking R26.2,Abnormalities of gait and mobility R26.9,Encounter for other orthopedic aftercare Z47.89 Onset 10/04/24 Subjective Information Pt states her foot and ankle are doing okay. She states she is able to do short distance walking, grocery shopping, ect but long distance walking for exercise or lots of errands is still decreased from her normal. She states she continues to do stairs one step at a time but Reported Pain Level Pain Score 4: Self Report Assessment PT Clinical Summary Pt presents to therapy today for her progress report following 10 visits of skilled therapy following a R Achilles tendon repair and bone spur removal. Today she demonstrates improved ankle motion in all planes of motion, an improved gait speed and gait pattern, and improved balance. She continues to have some R ankle weakness, her HEP was progressed to address this. She has met or progressed well towards all of her therapy goals and no longer requires skilled services, she will be discharged at this time. Plan of Care PT Services Indicated Yes
== END 2025-01-17 09:41 | disposition home or self-care (01) ==
LOC: ANHGOSHPT 12:30
PROVIDERS: PCP Family Medicine
DX: Z47.89 Encounter for other orthopedic aftercare (principal); Z48.89 Encounter for other specified surgical aftercare; M76.61 Achilles tendinitis, right leg
CPT/HCPCS: 97110; 97112; 97140; 97161; 97530

== ENCOUNTER 2025-03-12 07:47 | Outpatient (CLI) | payer MEDICARE, OTHER, SELFPAY ==
--- OUTSIDE RECORDS SUMMARY | 2025-03-12 07:52 | XMS_ITS | Data Portability ---
Author Organization [place] - [facility] OFFICE Address [address] [place] [address] Care Team Providers Care Form Setter Name Role Phone BROOKE PELLETIER Primary Care Provider Assessment Encounter Date Assessment Date Assessment LastModified by Organization Details LastModified Time 09/18/2023 09/18/2023 Patient Examined by NESS Munoz, Also Documentation reviewed and approved by supervising physician john Not available 09/18/2023 10:14:14 Plan of Treatment Reminders Order Date Submit Date Provider Last Modified By Organization Details Last Modified Time Details Appointments None recorded. Lab None recorded. Referral None recorded. Procedures None recorded. Surgeries None recorded. Imaging None recorded. Medication Orders nitroglycer in 0.4 mg sublingual tablet 2022 023 [id number], [address], [place], [phone], 10:22:53 Patient TargetsNo targets recorded. Patient Instructions Encounter Date Encounter Id Patient Instructions Last Modified By Organization Details Last Modified Time 02/22/2022 [id number] Weight loss 20 pounds Exercise advised Low cholesterol diet advised Low sodium diet advised. [email or web address] Not available 02/22/2022 13:23:18 08/26/2022 [id number] Weight loss 20 pounds Exercise advised Low cholesterol diet advised Low sodium diet advised. [email or web address] Not available 08/26/2022 11:56:44 09/18/2023 [id number] Low cholesterol diet advised Low sodium diet advised. [email or web address] Not available 09/18/2023 10:18:56 Reason for Referral None Reported. Results Created Date Observation Date Name Description Value Unit Range Abnormal Flag Note LastModifiedBy Organization Detail LastModifiedTime 09/06/2008/24/2021 elect rocar diogr am No observ ation record ed. [email or web address] Not Available 2020 13:49:13 02/24/20 22 02/22/2022 elect rocar diogr am No observ ation record ed. Not Available 2021 12:31:10 06/08/20 22 05/27/2022 US, doppl er, venou s No observ ation record ed. Not Available 2021 10:08:44 08/30/20 22 08/26/2022 elect rocar diogr am No observ ation record ed. Not Available 2021 09:42:32 02/29/20 23 02/24/2023 elect rocar diogr am No observ ation record ed. Not Available 2022 09:22:53 02/29/20 23 02/24/2023 elect rocar diogr am No observ ation record ed. Not Available 2022 09:24:25 04/10/20 23 04/07/2023 US, echoc ardio gram No observ ation record ed. [email or web address] Not Available 2022 12:29:07 04/11/20 23 04/03/2023 XR, chest , 2 view No observ ation record ed. Not Available 2022 09:06:09 09/20/20 23 09/18/2023 elect rocar diogr am No observ ation record ed. Not Available 2022 16:08:03 10/25/20 23 10/07/2023 exerc ise stres s test No observ ation record ed. Not Available 2022 10:17:14 Result Notes Documentation Provider Name and Address Organization Details Recorded Time Cmp, Serum Or Plasma : 02/17/22:Na 140,K 4.9,Cl 102,Co2 22,Glu 112,Bun 18,Cr 0.91,ALT 43,AST 36. 02/17/22:Wbc 5.5,Rbc 4.67,Hgb 13.3,Hct 40.4,Plat 308. 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 Nolan Kumar [place] - [facility] 9 07:08:49 Paresthesia 30110202 Active 2018 Left sided Nolan Kumar [place] - [facility] 9 07:15:22 Malignant tumor of breast 117229641 Active 2018 Kangpadmini Stephens null, [place] - [facility] 9 17:09:27 Dyslipidemia 041062644 Active 2018 Pearl Stephens [place] [facility] 3 12:23:49 Dyspnea on exertion 65594472 Active 2018 Pearl [place] - [facility] 9 11:56:43 Benign hypertension 68589621 Active 2018 Pearl [place] [facility] 3 12:23:44 Obstructive sleep apnea syndrome 60317464 Active 2018 Pearl Stephens [place] - [facility] 3 12:24:07 Transient cerebral ischemia 332913691 Active 2019 Pearl Stephens [place] [facility] 0 17:18:06 Family history of transient ischemic attack 995705425 Active 2019 Pearl Stephens [place] - [facility] 0 12:26:01 Problem Notes None recorded. Procedures Surgical History Date Name Laterality Status Provider Name and Address Organization Details Recorded Time [facility] 04/16/2019 17:09:59 Unlisted px foot/toes completed Kang Mes [place] - [facility] 04/16/2019 17:10:14 primary fusion of cervical spine completed Pearl Stephens [facility] 04/16/2019 17:10:32 Imaging Results Imaging Date Name Status LastModified by Organization Details LastModified Time 08/24/2021 electrocardiogram completed [email or web address] Informa tion not available 09/06/2021 13:49:13 02/22/2022 electrocardiogram completed Informa tion not available 02/23/2022 12:31:10 05/27/2022 US, doppler, venous completed Infor mation not available 06/08/2022 10:08:44 08/26/2022 electrocardiogram completed Informa tion not available 08/30/2022 09:42:32 02/24/2023 electrocardiogram completed Informa tion not available 02/28/2023 09:22:53 02/24/2023 electrocardiogram completed Informa tion not available 02/28/2023 09:24:25 04/07/2023 US, echocardiogram completed Inform ation not available 09/16/2023 12:29:07 04/03/2023 XR, chest, 2 view completed Informa tion not available 04/11/2023 09:06:09 09/18/2023 electrocardiogram completed Informa tion not available 09/20/2023 16:08:03 10/07/2023 exercise stress test completed Info rmation not available 10/25/2023 10:17:14 Procedure Notes None recorded. Medical Equipment None Reported. Allergies Allergen ID Allergen Name Allergen Category Reaction Reaction Severity Criticality Documentation Date Start Date Code Code System Note Provider Name and Address Organization Details Recorded Time 8232 Substance with sulfonami de structure and antibacte rial mechanism of action (substanc e) medicatio n Not available Not available Not available 04/16/2019 42010 8003 SNOMED Pearl infante [facility] 9 17:10:51 Medications Name Sig Start Date Stop Date Status Note LastModified by Organization Details LastModified Time amoxicill in 500 mg capsule TAKE 1 CAPSULE BY MOUTH EVERY 12 HOURS FOR 7 DAYS 09/18 completed Not Available Not Available Not Available carvedilo l 6.25 mg tablet Take 1 tablet twice a day by oral route. 02/24 completed Not Available Not Available Not Available ginseng 100 mg capsule Take 1 capsule every day by oral route. 01/14 completed Pt is no more on this medicati on 01/14/20 21 sm Not Available Not Available Not Available amiodaron e 200 mg tablet Take 1 tablet every day by oral route. 02/24 completed Not Available Not Available Not Available clopidogr el 75 mg tablet Take 1 tablet every day by oral route. 02/24 completed Not Available Not Available Not Available triamcino lone acetonide 0.1 % topical cream 12/23 completed pt. no longer takes Not Available Not Available Not Available amoxicill in 500 mg tablet TAKE 4 TABLETS BY MOUTH ONE HOUR PRIOR TO THE DENTAL APPOINTM ENT. 02/22 completed Not Available Not Available Not Available glimepiri de 1 mg tablet Take 1 tablet twice a day by oral route. 02/24 completed Not Available Not Available Not Available hydrocort isone 1 % topical cream APPLY A THIN LAYER TO THE AFFECTED AREA(S) BY TOPICAL ROUTE 2 TIMES PER DAY active Not Available Not Available No t Available pantopraz ole 40 mg tablet,de layed release TAKE 1 TABLET BY MOUTH EVERY MORNING active Not Available Not Available No t Available lisinopri l 10 mg tablet TAKE 1 TABLET BY MOUTH DAILY active Not Available Not Available No t Available nitroglyc bhavna 0.4 mg sublingua l tablet ONE TABLET UNDER TONGUE NEEDED FOR CHEST PAIN active Not Available Not Available No t Available aspirin 81 mg chewable tablet Chew 1 tablet every day by oral route. active pt takes 325mg since stent placemen t Not Available Not Available Not Available hydroxyzi ne HCl 25 mg tablet TAKE 1 TABLET BY MOUTH TWICE DAILY NEEDED FOR ITCHING active Not Available Not Available No t Available lisinopri l 5 mg tablet 03/31 completed pt not taking 03/31/20 Not Available Not Available Not Available azelastin e 137 mcg (0.1 %) nasal spray USE 1 SPRAY IN EACH NOSTRIL EVERY 12 HOURS active Not Available Not Available No t Available methylpre dnisolone 4 mg tablets in a dose pack FOLLOW PACKAGE DIRECTIO NS 09/18 completed Not Available Not Available Not Available fluticaso ne propionat e 50 mcg/actua tion nasal spray,phylicia pension SHAKE LIQUID AND USE 1 SPRAY IN EACH NOSTRIL TWICE DAILY active Not Available Not Available No t Available lisinopri l 2.5 mg tablet Take 1 tablet twice a day by oral route. 09/16 completed Not Available Not Available Not Available docusate sodium 100 mg tablet Take 1 tablet every day by oral route. 02/24 completed Not Available Not Available Not Available amoxicill in 875 mg-potass ium clavulana te 125 mg tablet TAKE 1 TABLET BY MOUTH TWICE DAILY 08/26 completed Not Available Not Available Not Available Mucinex 600 mg tablet, extended release Take 1 tablet every 12 hours by oral route as needed. 02/22 completed Not Available Not Available Not Available ezetimibe 10 mg tablet TAKE 1 TABLET BY MOUTH EVERY DAY 12/23 completed pt not taking Not Available Not Available Not Available nitrofura ntoin monohydra te/macroc rystals 100 mg capsule TAKE 1 CAPSULE BY MOUTH EVERY 12 HOURS FOR 5 DAYS WITH MEALS OR FOOD 09/18 completed Not Available Not Available Not Available Zyrtec 1 tab q12hr prn active Not Available Not Available No t Available multivita min 1 tab qd (sonia 500mg, phosphor us 143mg) active Not Available Not Available No t Available apple cider vinegar Lemon juice, honey drink 2 tbsp, 1/2 lemon, 1 tsp honey qd 08/24 completed no longer takes per pt 02/16/20 21,rl Not Available Not Available Not Available Curcumin 02/22 completed tumeric curcumin 500mg Not Available Not Available Not Available Probiotic Plexus 2 caps qhs 12/23 completed pt. no longer takes Not Available Not Available Not Available Suprep Bowel Prep Kit 17.5 gram-3.13 gram-1.6 gram oral solution 12/23 completed pt not takin Not Available Not Available Not Available Cardio [employer] Benefits 1 cap qd ( vit B6 50mg, folic 5 mg, vit B12) 01/14 completed Pt is no more on this medicati on 01/14/20 21 sm Not Available Not Available Not Available Eliquis 5 mg tablet Take 1 tablet twice a day by oral route. 08/24 completed Not Available Not Available Not Available Osteo Bi-Flex Triple Strength 750 mg-644 mg-30 mg-1 mg tablet Take 2 tablets every day by oral route as directed . active Not Available Not Available No t Available Flonase Allergy Relief 1-2 sprays daily active Not Available Not Available No t Available Praluent Pen 75 mg/mL subcutane ous pen injector q 2 weeks 01/14 completed Not Available Not Available Not Available Repatha Syringe 140 mg/mL subcutane ous syringe Inject 1 mL every 2 weeks by subcutan eous route. 03/31 completed pt not taking 03/31/20 Not Available Not Available Not Available Repatha SureClick 140 mg/mL subcutane ous pen injector ADMINIST ER 1 ML UNDER THE SKIN EVERY 2 WEEKS active Not Available Not Available No t Available biotin 5,000 mcg sublingua l tablet Place 1 tablet every day by sublingu al route as directed . 01/14 completed Pt is no more on this medicati on 01/14/20 21 sm Not Available Not Available Not Available ID NOW COVID-19 Test Kit TEST DIRECTED 08/26 completed Not Available Not Available Not Available Vitals Date Recorded Body height Body mass index (BMI) Body weight Heart rate Oxygen saturation Oxygen saturation in Arterial blood by Pulse oximetry Systolic blood pressure Diastolic blood pressure Provider Name and Address Organization Details Last Updated DateTime 1 160.02 cm 35.4 kg/m2 61619.4 7 g 99 /min 96 % 96 % 106 mm[Hg] 62 mm[Hg] Annmarie Huston [facility] [place] 1 15:12:32 Date Recorded Body height Body mass index (BMI) Body weight Provider Name and Address Organization Details Last Updated DateTime 02/22/2022 160.02 cm 35.4 kg/m2 52487.47 g Pritesh Mario MD [address] [place], [address], [facility] [place] 02/22/2022 12:28:45 Date Recorded Heart rate Oxygen saturation Oxygen saturation in Arterial blood by Pulse oximetry Systolic blood pressure Diastolic blood pressure Provider Name and Address Organization Details Last Updated DateTime 2 85 /min 97 % 97 % 138 mm[Hg] 82 mm[Hg] Ismael Cerna [facility] 2 12:35:45 Date Recorded Body height Body mass index (BMI) Body weight Oxygen saturation Oxygen saturation in Arterial blood by Pulse oximetry Heart rate Systolic blood pressure Diastolic blood pressure Provider Name and Address Organization Details Last Updated DateTime 3 160.02 cm 35.8 kg/m2 52330.7 4 g 84 % 84 % 94 /min 118 mm[Hg] 82 mm[Hg] KIMBERLEY HERNANDEZ [facility] 3 11:33:30 Date Recorded Body height Body mass index (BMI) Body weight Heart rate Respiratory rate Oxygen saturation Oxygen saturation in Arterial blood by Pulse oximetry Systolic blood pressure Diastolic blood pressure Provider Name and Address Organization Details Last Updated DateTime 3 160.02 cm 35.1 kg/m2 32827.2 9 g 72 /min 16 /min 98 % 98 % 132 mm[Hg] 82 mm[Hg] Ismael Cerna [facility] 3 09:44:39 Social History Question Answer Notes LastModified by [facility] ion Details LastModified Time Tobacco Smoking Status Former Smoker quit 1976 Not Available [facility] 09/29/2020 03:30:41 What Is Your Level Of Alcohol Consumption? None [id number] Information not available 09/29/2020 Which Illicit Or Recreational Drugs Have You Used? Eduardo [id number] Information not available 09/29/2020 Do You Or Have You Ever Used E-cigarettes Or Vape? Never Used Electronic Cigarettes [id number] Information not available 09/29/2020 Live Alone Or With Others? Alone Information not available 04/16/2019 What Was The Date Of Your Most Recent Tobacco Screening? 05/17/2019 [id number] Information not available 09/29/2020 Do You Or Have You Ever Used Smokeless Tobacco? Former Smokeless Tobacco User [id number] Information not available 09/29/2020 How Much Tobacco Do You Smoke? 1.5 PPD [id number] Information not available 09/29/2020 How Many Years Have You Smoked Tobacco? 8 [id number] Information not available 09/29/2020 Sex: Unknown Functional Status None recorded. Mental Status None recorded. Family History Relationship Description Onset Age of this Age Resolved Age Notes LastModified by Organization Details LastModified Time Father Malignant tumor of lung [email or web address] Not available 2018 17:11:07 Medical History Condition Response Hyperlipidemia Y Cancer Y Hypertension Y Sleep Apnea Y Gynecological HistoryNo gynecological history recorded. Obstetrics History GPAL:G 0 P 0 0 0 0 Past Encounters Encounter ID Performer Location Encounter Start Date Encounter Closed Date Diagnosis/Indication Diagnosis SNOMED-CT Code Diagnosis ICD10 Code Diagnosis Note [id number] Pritesh Mario MD [facility] OFF[facility] [address] [place] [address] 04/19/2019 10:41:04 04/19/2019 12:44:29 History of transient ischemic attack 589938816 Z86.73 ADAM Dyspnea on exertion 6084 5006 R06.09 Treadmill Myoview Stress test, has high [place] Risk score. Has Known CAD, or CAD risk equivalent . To look for any ischemia. Dyslipidemia 307784155 E 78.5 Had muscle ache from Lipitor, and crestormay need Repatha Benign hypertension 1072 5009 I10 Blood pressure is elevated today, but this is only one reading, will keep close follow up, and consider medication change if blood pressure is still elevated next visit. Obstructiv e sleep apnea syndrome 79458030 G47.33 on Cpap [id number] Pritesh Mario MD [facility] OFFICE [address] [place] [address] 05/17/2019 10:55:14 06/22/2019 20:51:41 History of transient ischemic attack 050351342 Z86.73 ADAM with no thrombus, but has aortic plaqueNeed s to keep LDL less than 70, and HDL more than 40. Dyspnea on exertion 6084 5006 R06.09 Treadmill Myoview Stress test, has high [place] Risk score. Has Known CAD, or CAD risk equivalent . To look for any ischemia. Dyslipidemia 607015303 E 78.5 Had muscle ache from Lipitor, and crestor . will try Zetia firstmay need Repatha Benign hypertension 1072 5009 I10 Blood pressure is elevated today, but this is only one reading, will keep close follow up, and consider medication change if blood pressure is still elevated next visit. Obstructiv e sleep apnea syndrome 57011572 G47.33 on Cpap Coronary arteriosclerosis 03523628 I25.10 will start on plavix for 3 months. ADAM with no thrombus, but has aortic plaque Needs to keep LDL less than 70, and HDL more than 40. [id number] MD Alicia Andrew Office [address] [place] [address] 07/01/2019 09:36:16 07/01/2019 10:45:50 History of transient ischemic attack 106723911 Z86.73 ADAM with no thrombus, but has aortic plaqueNeed s to keep LDL less than 70, and HDL more than 40. Dyspnea on exertion 6084 5006 R06.09 Treadmill Myoview Stress test, has high [place] Risk score. Has Known CAD, or CAD risk equivalent . To look for any ischemia. Dyslipidemia 828881463 E 78.5 Had muscle ache from Lipitor, and crestor . will try Zetia firstmay need Repatha Benign hypertension 1072 5009 I10 Blood pressure is elevated today, but this is only one reading, will keep close follow up, and consider medication change if blood pressure is still elevated next visit. Obstructiv e sleep apnea syndrome 56643849 G47.33 on Cpap Coronary arteriosclerosis 30285488 I25.10 will start on plavix for 3 months. ADAM with no thrombus, but has aortic plaque Needs to keep LDL less than 70, and HDL more than 40. [id number] Pritesh Mario MD [facility] [address] [place] [address] 09/27/2019 09:58:47 10/14/2019 22:33:13 History of transient ischemic attack 701935272 Z86.73 On Plavix for past 6 months. (started 02/2019). She may discontinu e Plavix. ADAM with no thrombus, but has aortic plaque.US, duplex, carotid artery 03-22-2019 : < 50% stenosis in the right internal carotid artery 2) < 50 % stenosis in the left internal carotid artery Needs to keep LDL less than 70, and HDL more than 40. Dyspnea on exertion 6084 5006 R06.09 Improved. 04/29/19 TDM: Negative stress test. Normal LV systolic function. LVEF 62% Dyslipidemia 199563157 E 78.5 06/26/19: TC 192, TG 80, HDL 62 ,LDL 114,Intole rant of Crestor, Lipitor (muscle cramps). On Ezetimibe. With aortic plaque, she needs to have her LDL <70. Will order Repatha. Benign hypertension 1072 5009 I10 Controlled . Continue medication s. Obstructiv e sleep apnea syndrome 85796763 G47.33 on Cpap [id number] Pritesh Mario MD [facility] [address] [place] [address] 03/31/2020 10:07:54 03/31/2020 12:43:26 History of transient ischemic attack 809153582 Z86.73 Continue ASA Needs to keep LDL less than 70, and HDL more than 40. Dyspnea on exertion 6084 5006 R06.09 Improved. 04/29/19 TDM: Negative stress test. Normal LV systolic function. LVEF 62% Dyslipidemia 622143696 E 78.5 06/26/19: TC 192, TG 80, HDL 62 ,LDL 114,Intole rant of Crestor, Lipitor (muscle cramps). On Ezetimibe. With aortic plaque, she needs to have her LDL <70. Repatha not covered by insurance. WIll work on diet and exercise. Benign hypertension 1072 5009 I10 Controlled . Continue medication s. Agree with Norvasc now, her BP is good now Obstructiv e sleep apnea syndrome 55384366 G47.33 on Cpap [id number] Pritesh Mario MD [facility] [address] [place] [address] 10/06/2020 10:46:06 10/06/2020 11:18:41 History of transient ischemic attack 590910285 Z86.73 Continue ASA No recurrence Dyspnea on exertion 6084 5006 R06.09 ImprovedTD M 04/29/2019 : Negative stress test. Normal LV systolic function. LVEF 62% Dyslipidemia 133880946 E 78.5 Needs to keep LDL less than 70, and HDL more than 40. 019 LDL 114 Now on Praluent injections d/t statin intoleranc e Will get fasting lipids for follow-up Benign hypertension 1072 5009 I10 Controlled on current regimen Obstructiv e sleep apnea syndrome 42020155 G47.33 Compliant with nightly CPAP use Edema of l ower extremity 284835548 R60.0 Venous duplex and reflux studyCompr ession stockings trial [id number] PriteshMD Alicia Giraldo Office [address] [place] [address] 12/23/2020 16:11:54 12/23/2020 16:47:04 History of transient ischemic attack 127073240 Z86.73 In 2019Contin ue ASA No recurrence Dyspnea on exertion 6084 5006 R06.09 ImprovedTD M 04/29/2019 : Negative stress test. Normal LV systolic function. LVEF 62% Dyslipidemia 104301531 E 78.5 Needs to keep LDL less than 70, and HDL more than 40. 019 LDL 114 Now on Praluent injections d/t statin intoleranc eInsurance is switching her to repatha: Copay card Herlinda get fasting lipids for follow-up Benign hypertension 1072 5009 I10 Controlled on current regimen Obstructiv e sleep apnea syndrome 38482749 G47.33 Compliant with nightly CPAP use Edema of l ower extremity 690838481 R60.0 10/19/20 VENOUS REFLUX: Severe bilateral reflux disease noted.Will not wear compressio n socks, reports pain if she wears themEducat ed on thigh highs Peripheral venous insufficiency 21843511 I87.2 Will arrange for venogram with ivus. Consider EVLT [id number] MD Alicia Andrew Office [address] [place] [address] 01/14/2021 11:24:24 01/14/2021 11:43:30 History of transient ischemic attack 018228967 Z86.73 in 2019 with no recurrence Continue ASA Dyspnea on exertion 6084 5006 R06.09 ImprovedTD M 04/29/2019 : Negative stress test. Normal LV systolic function. LVEF 62% Dyslipidemia 837228956 E 78.5 Needs to keep LDL less than 70, and HDL more than 40. 021 LDL 68 Continue Repatha injections Will get fasting lipids for follow-up Benign hypertension 1072 5009 I10 Controlled on current regimen Obstructiv e sleep apnea syndrome 03929711 G47.33 Compliant with nightly CPAP use Edema of l ower extremity 233724499 R60.0 Resolved s/p left iliac vein stentLeg elevation and low salt diet advised Peripheral venous insufficiency 81188368 I87.2 s/p left iliac vein stent ()Now asymptomat icIVUS 01/06/2021 : Significan t compressio n of the left common iliac vein treated with Wallstent with good results. [id number] María Tong [facility] [address] [place] [address] 02/15/2021 16:17:59 02/15/2021 16:42:26 History of transient ischemic attack 692184693 Z86.73 in 2019 with no recurrence Continue ASA Dyspnea on exertion 6084 5006 R06.09 ImprovedTD M 04/29/2019 : Negative stress test. Normal LV systolic function. LVEF 62% Dyslipidemia 890533704 E 78.5 Needs to keep LDL less than 70, and HDL more than 40. 021 LDL 68 Continue Repatha injections Will get fasting lipids for follow-up Benign hypertension 1072 5009 I10 Controlled on current regimen Obstructiv e sleep apnea syndrome 43410444 G47.33 Compliant with nightly CPAP use Edema of l ower extremity 234263640 R60.0 Resolved s/p left iliac vein stentLeg elevation and low salt diet advised Peripheral venous insufficiency 04709407 I87.2 s/p left iliac vein stent ()Now asymptomat icIVUS 01/06/2021 : Significan t compressio n of the left common iliac vein treated with Wallstent with good results.Tr ansition to full dose ASA and discontinu e Eliquis 02/15/2021 [id number] Pritesh Mario MD [place] [facility] [place] [address] 08/24/2021 14:54:50 08/24/2021 15:25:23 History of transient ischemic attack 309211842 Z86.73 in 2019 with no recurrence Continue ASA Dyspnea on exertion 6084 5006 R06.09 ImprovedTD M 04/29/2019 : Negative stress test. Normal LV systolic function. LVEF 62% Dyslipidemia 027904518 E 78.5 Needs to keep LDL less than 70, and HDL more than 40. 021 LDL 68 Continue Repatha injections Will get fasting lipids for follow-up Benign hypertension 1072 5009 I10 Controlled on current regimen Obstructiv e sleep apnea syndrome 27535045 G47.33 Compliant with nightly CPAP use Edema of l ower extremity 582597623 R60.0 Resolved s/p left iliac vein stentLeg elevation and low salt diet advised Peripheral venous insufficiency 70454086 I87.2 s/p left iliac vein stent ()Now asymptomat icIVUS 01/06/2021 : Significan t compressio n of the left common iliac vein treated with Wallstent with good results.Tr ansition to full dose ASA and discontinu e Eliquis 02/15/2021 [id number] Pritesh Mario MD [facility] [address] [place] [address] 02/22/2022 11:47:18 02/22/2022 13:25:28 History of transient ischemic attack 707078553 Z86.73 in 2019 with no recurrence Continue ASA Dyspnea on exertion 6084 5006 R06.09 ImprovedTD M 04/29/2019 : Negative stress test. Normal LV systolic function. LVEF 62% Dyslipidemia 256827265 E 78.5 Needs to keep LDL less than 70, and HDL more than 40. 021 LDL 68 Continue Repatha injections Will get fasting lipids for follow-up Benign hypertension 1072 5009 I10 Controlled on current regimen Obstructiv e sleep apnea syndrome 42741240 G47.33 Compliant with nightly CPAP use Edema of l ower extremity 388111008 R60.0 Resolved s/p left iliac vein stentLeg elevation and low salt diet advised Peripheral venous insufficiency 95748421 I87.2 s/p left iliac vein stent ()Now asymptomat icIVUS 01/06/2021 : Significan t compressio n of the left common iliac vein treated with Wallstent with good results.Tr ansition to full dose ASA and discontinu e Eliquis 02/15/2021 [id number] Pritesh Mario MD [facility] [address] [place] [address] 08/26/2022 10:46:22 08/26/2022 11:59:30 History of transient ischemic attack 578310062 Z86.73 in 2019 with no recurrence Continue ASA Dyspnea on exertion 6084 5006 R06.09 ImprovedTD M 04/29/2019 : Negative stress test. Normal LV systolic function. LVEF 62% Dyslipidemia 526133843 E 78.5 Needs to keep LDL less than 70, and HDL more than 40. 021 LDL 68 Continue Repatha injections Will get fasting lipids for follow-up Benign hypertension 1072 5009 I10 Controlled on current regimen Obstructiv e sleep apnea syndrome 99381764 G47.33 Compliant with nightly CPAP use Edema of l ower extremity 155796358 R60.0 Resolved s/p left iliac vein stentLeg elevation and low salt diet advised Peripheral venous insufficiency 66313359 I87.2 s/p left iliac vein stent ()Now asymptomat icIVUS 01/06/2021 : Significan t compressio n of the left common iliac vein treated with Wallstent with good results.Tr ansition to full dose ASA and discontinu e Eliquis 02/15/2021 [id number] Pritesh Mario MD [facility] [place] [address] 02/24/2023 11:00:44 02/24/2023 11:47:17 History of transient ischemic attack 461026007 Z86.73 in 2019 with no recurrence Continue ASA Dyspnea on exertion 6084 5006 R06.09 Obtain echo to evaluate for structural /functiona l disease.TD M 04/29/2019 : Negative stress test. Normal LV systolic function. LVEF 62% Dyslipidemia 818983214 E 78.5 Needs to keep LDL less than 70, and HDL more than 40. 021 LDL 68 Continue Repatha injections Will get fasting lipids for follow-up Benign hypertension 1072 5009 I10 Controlled on current regimen Obstructiv e sleep apnea syndrome 48467750 G47.33 Compliant with nightly CPAP use Edema of l ower extremity 874707092 R60.0 Resolved s/p left iliac vein stentLeg elevation and low salt diet advised Peripheral venous insufficiency 20547977 I87.2 s/p left iliac vein stent ()Now asymptomat icIVUS 01/06/2021 : Significan t compressio n of the left common iliac vein treated with Wallstent with good results. [id number] GOLDIE SANTANA [facility] [address] [place] [address] 09/18/2023 09:27:56 09/18/2023 10:42:35 History of transient ischemic attack 233299503 Z86.73 in 2019 with no recurrence Continue ASA Dyslipidemia 003299430 E 78.5 Needs to keep LDL less than 70, and HDL more than 40.12/2022 LDL 87Continue Repatha injections , she is rejecting zetiaWill get fasting lipids for follow-up Benign hypertension 1072 5009 I10 Controlled on current regimen Obstructiv e sleep apnea syndrome 87365660 G47.33 Compliant with nightly CPAP use Edema of l ower extremity 121124537 R60.0 Resolveds/ p left iliac vein stentLeg elevation and low salt diet advised Peripheral venous insufficiency 13270061 I87.2 s/p left iliac vein stent ()Now asymptomat icIVUS 01/06/2021 : Significan t compressio n of the left common iliac vein treated with Wallstent with good results. Dyspnea on exertion 6084 5006 R06.09 Treadmill Myoview Stress test, has high [place] Risk score. Has Known CAD, or CAD risk equivalent . To look for any ischemia. US, echocardio gram ECHO 04/07/23: LV chamber size is normal. LV wall thickness is normal. The estimated left ventricle ejection fraction is 65-70% (normal). The aortic valve is mildly calcified. The mitral valve leaflet is mildly thickened. There is a trace pericardia l effusion. TDM 04/29/2019 : Negative stress test. Normal LV systolic function. LVEF 62% Atypical chest pain 1025 60769 R07.89 Treadmill Myoview Stress test, has high [place] Risk score. Has Known CAD, or CAD risk equivalent . To look for any ischemia. Pericardial effusion 373 894671 I31.39 trace pericarida l effusion per her last echowill repeat echo in 6 months Health Concerns Section Related Observation LastModified by Organization Detai ls LastModified Time None Recorded Concern Status LastModified by Organization Details LastModified Time None Recorded Advance Directives Directive None Recorded Payers Encounter Date Sequence Insurance Name Policy Number Policy Bonilla Covered Member ID Bonilla Member ID Guarantor Name 08/24/2021 2 [employer] (MEDICARE SUPPLEMENT) Melissa Hayward [id number] Melissa Hayward 08/24/2021 1 [place] Melissa R Mainor [id number] Melissa Mainor 02/22/2022 2 [employer] (MEDICARE SUPPLEMENT) Melissa Mainor [id number] Melissa Mainor 02/22/2022 1 [place] Melissa R Mainor [id number] Melissa Mainro 08/26/2022 2 [place] [id number] Melissa R Mainor [id number] Melissa Mainor 08/26/2022 1 [place] Melissa R Mainor [id number] Melissa Mainor 02/24/2023 2 [place] [id number] Melissa R Mainor [id number] Melissa Mainor 02/24/2023 1 [place] Melissa R Mainor [id number] Melissa Mainor 09/18/2023 1 [place] Melissa R Mainor [id number] Melissa Mainor 09/18/2023 2 [employer] (MEDICARE SUPPLEMENT) Melissa Mainor [id number] Melissa Mainor Notes Date Note Type Note Provider Name and Address Organization Details Recorded Time 08/24/2021 text/html 08/24/21CC : [facility] follow [id number] female with a PMH of hypertension, chronic cervical dystonia, former tobacco dependence who presents today for follow-up.She was last seen in the clinic on 02/15/21 , since then she feels well Denies chest pain, but has occsional pressure .Denies shortness of breath at rest. Has mild dyspnea on exertion.No orthopnea. No PNDs.Denies heart palpitations.Denies dizziness. Denies syncope or near syncope.No ankle or leg edema.No major bleeding events.No reported side effects from medications. Taking medications as prescribed with no missed doses.Denies snoring, daytime somnolence and AM headache.*Last LDL was 68 done on 12/28/20 .Pt dose not takes any statins.Has been active but not exercising. Previously :She has had significant relief following iliac stent placement. She remains on Eliquis 5mg BID. IVUS 01/06/2021: Significant compression of the left common iliac vein treated with Wallstent with good results.She presented to [facility] on 03/21/19, after originally being seeing at [facility] in [place], [place] with complaints of intermittent, left upper arm numbness. Her PCP is from the [facility] so she decided to be transferred to [facility]. She underwent a head CT which was apparently unremarkable at the outside hospital. She reported that the numbness started around 7:00 AM. She also admitted on having a squeezing sensation to her upper left arm. Around 14:00, she had started experiencing left sided facial numbness and heaviness to her left lower lower extremity. Denied an visual disturbances, facial droop, or headache. Denied CP or SOB. She apparently experienced some head trauma 3 weeks prior when she tripped and fell and injured the left side of her face. She denied any previous TIA or CVA. By the time she arrived to the ED, her symptoms had resolved. There was concern for a TIA.*Had ADAM with aortic plaque, no thrombus noted*She underwent a MRI with no acute infarct.*Carotid artery ultrasound revealing no significant occlusion with < 50% stenosis in both right and left internal carotids.*Had ECHO with bubble study which showed NO ggdqi-jy-aehv shunt with normal EF and no valvular abnormalities.*Had TTE done in 05/10/19 showed mild LVH, EF 60% , Mitral valve leaflets appear mildly thickened. Mild mitral valve regurgitation .Results from this visit, or from the past:12/29/2020 PT/INR: PT 10.3, INR 1.12/29/2020 CMP: NA 140, K 4.4, CL 105, CO2 21, GL 111, BUN 20, CR 0.87, CA 9.4, AST 23, ALT 21, ALK PHOS 862 CK: 192 LIPID: TC 147, TG 76, HDL 64, LDL 682 CBC: WBC 5.5, RBC 4.41, HGB 12.7, HCT 38.6, PLT 8658606/26/19: Na 142, K 4.4 ,CL 105 ,CO2 24, GLU 94 ,BUN 15, CR 0.83,06/26/19: TC 192, TG 80, HDL 62 ,LDL 114,03/22/19 BMP: NA 141, K 3.8, CL 103, CO2 31, GLU 91, BUN 12, CR .9003/22/19 FLP: TC 168, TR 58, HDL 43, LDL 9303/22/19 CBC: WBC 4.6, HGB 12.4, HCT 38.1, PLT 250EKG 12/23/20:Sinus tachycardia,low voltage chest leads,non-specific ST depression inferolateral leads,Non-specifc ST depression anterior leads.10/06/20 EKG: NSR04/19/19 EKG: low voltage, chest leads10/19/20 VENOUS REFLUX: Severe bilateral reflux disease noted.ADAM 05/10/2019 No evidence of intracardiac thrombus, there is evidence of mild to moderate atherosclerotic plaque noted in the descending aorta and in the aortic arch possibly the cause of embolizationecho 03/24/19 1) normal left ventricular systolic function no focal wall motion abnormalities ,normal left ventricular size normal left ventricular diastolic function EF is visually estimated at 60-65% E/E 9 is minimally elevated Global longitudinal strain is normal at 18.6% 2) Left atrial size is with in upperlimits of normal 3) Right atrium with in upper limits of normal 4) Mild mitral regurgitation 5) Right ventricular systolic pressure could be estimated du to inadequate visualization of the tricuspid regurgitation jet Trivial regurgitation jet Trivial regurgitation in the tricuspid valve 6) Trivial pericardial effusion 7) Dilated IVC with respiratory collapse consistent with elevated right atrai pressureUS, duplex, carotid artery ) < 50% stenosis in the right internal carotid artery 2) < 50 % stenosis in the left internal carotid fpxhon00/03/19 TDM: Negative stress test. Normal LV systolic function. LVEF 62% Pritesh Mario MD [address] [place], [address], [place] [facility] 08/24/2021 15:22:56 02/22/2022 text/html 02/22/22CC : Car [facility] follow up, dyspnea on [id number] female with a PMH of hypertension, chronic cervical dystonia, former tobacco dependence who presents today for 6 month follow-up. She was last seen in the clinic on 08/24/21 , since then she is doing well.She denies ER visits and hospitalizations since she was last seen. Today reports:Denies chest pain, but has occasional chest tightnessDenies shortness of breath at rest. Has mild dyspnea on exertion.No orthopnea. No PNDs.Denies heart palpitations.Denies dizziness. Denies syncope or near syncope.No ankle or leg edema.No major bleeding events.No reported side effects from medications. Taking medications as prescribed with no missed doses.Denies snoring, daytime somnolence and AM headache.*Last LDL was 68 done on 12/29/20 .Pt dose not takes any statins . 02/17/22:Na 140,K 4.9,Cl 102,Co2 22,Glu 112,Bun 18,Cr 0.91,ALT 43,AST 36.02/17/22:Wbc 5.5,Rbc 4.67,Hgb 13.3,Hct 40.4,Plat 308. Previously :She has had significant relief following iliac stent placement. She remains on Eliquis 5mg BID. IVUS 01/06/2021: Significant compression of the left common iliac vein treated with Wallstent with good results.She presented to [facility] on 03/21/19, after originally being seeing at [facility] in [place], [place] with complaints of intermittent, left upper arm numbness. Her PCP is from the [place] area so she decided to be transferred to [facility]. She underwent a head CT which was apparently unremarkable at the outside hospital. She reported that the numbness started around 7:00 AM. She also admitted on having a squeezing sensation to her upper left arm. Around 14:00, she had started experiencing left sided facial numbness and heaviness to her left lower lower extremity. Denied an visual disturbances, facial droop, or headache. Denied CP or SOB. She apparently experienced some head trauma 3 weeks prior when she tripped and fell and injured the left side of her face. She denied any previous TIA or CVA. By the time she arrived to the ED, her symptoms had resolved. There was concern for a TIA. *Had ADAM with aortic plaque, no thrombus noted *She underwent a MRI with no acute infarct. *Carotid artery ultrasound revealing no significant occlusion with < 50% stenosis in both right and left internal carotids. *Had ECHO with bubble study which showed NO kygws-th-qlya shunt with normal EF and no valvular abnormalities. *Had TTE done in 05/10/19 showed mild LVH, EF 60% , Mitral valve leaflets appear mildly thickened. Mild mitral valve regurgitation .Results from this visit, or from the past:12/29/2020 PT/INR: PT 10.3, INR 1.12/29/2020 CMP: NA 140, K 4.4, CL 105, CO2 21, GL 111, BUN 20, CR 0.87, CA 9.4, AST 23, ALT 21, ALK PHOS 8612/29/2020 CK: 192/12/2020 LIPID: TC 147, TG 76, HDL 64, LDL 682 CBC: WBC 5.5, RBC 4.41, HGB 12.7, HCT 38.6, PLT 4778806/26/19: Na 142, K 4.4 ,CL 105 ,CO2 24, GLU 94 ,BUN 15, CR 0.83,06/26/19: TC 192, TG 80, HDL 62 ,LDL 114,03/22/19 BMP: NA 141, K 3.8, CL 103, CO2 31, GLU 91, BUN 12, CR .9003/22/19 FLP: TC 168, TR 58, HDL 43, LDL 9303/22/19 CBC: WBC 4.6, HGB 12.4, HCT 38.1, PLT 250EKG 12/23/20:Sinus tachycardia,low voltage chest leads,non-specific ST depression inferolateral leads,Non-specifc ST depression anterior leads.10/06/20 EKG: NSR04/19/19 EKG: low voltage, chest leads10/19/20 VENOUS REFLUX: Severe bilateral reflux disease noted.ADAM 05/10/2019 No evidence of intracardiac thrombus, there is evidence of mild to moderate atherosclerotic plaque noted in the descending aorta and in the aortic arch possibly the cause of embolizationecho 03/24/19 1) normal left ventricular systolic function no focal wall motion abnormalities ,normal left ventricular size normal left ventricular diastolic function EF is visually estimated at 60-65% E/E 9 is minimally elevated Global longitudinal strain is normal at 18.6% 2) Left atrial size is with in upperlimits of normal 3) Right atrium with in upper limits of normal 4) Mild mitral regurgitation 5) Right ventricular systolic pressure could be estimated du to inadequate visualization of the tricuspid regurgitation jet Trivial regurgitation jet Trivial regurgitation in the tricuspid valve 6) Trivial pericardial effusion 7) Dilated IVC with respiratory collapse consistent with elevated right atrai pressureUS, duplex, carotid artery ) < 50% stenosis in the right internal carotid artery 2) < 50 % stenosis in the left internal carotid /03/19 TDM: Negative stress test. Normal LV systolic function. LVEF 62% Pritesh Mario MD [address] [place], [address], [place] [facility] 02/22/2022 13:23:37 08/26/2022 text/html 08/26/22CC : Car diac follow up, dyspnea on [id number] female with a PMH of hypertension, chronic cervical dystonia, former tobacco dependence who presents today for 6 month follow-up with venous duplex study results. She was last seen in the clinic on 02/22/22, since then she is doing OK, now more active Denies chest pain.Denies shortness of breath at rest. Has mild dyspnea on exertion.No orthopnea. No PNDs.Denies heart palpitations.Denies dizziness. Denies syncope or near syncope.No ankle or leg edema.No major bleeding events.No reported side effects from medications. Taking medications as prescribed with no missed doses.Denies snoring, daytime somnolence and AM headache.*Last LDL was 68 done on 12/28/20.Pt dose not takes any statins. *Had Negative left-sided venous Doppler study on 05/27/22. Previously:02/17/22:Na 140,K 4.9,Cl 102,Co2 22,Glu 112,Bun 18,Cr 0.91,ALT 43,AST 36.02/17/22:Wbc 5.5,Rbc 4.67,Hgb 13.3,Hct 40.4,Plat 308. She has had significant relief following iliac stent placement. She remains on Eliquis 5mg BID. 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 She presented to [facility] on 03/21/19, after originally being seeing at [facility] in [place], [place] with complaints of intermittent, left upper arm numbness. Her PCP is from the [facility] so she decided to be transferred to [facility]. She underwent a head CT which was apparently unremarkable at the outside hospital. She reported that the numbness started around 7:00 AM. She also admitted on having a squeezing sensation to her upper left arm. Around 14:00, she had started experiencing left sided facial numbness and heaviness to her left lower lower extremity. Denied an visual disturbances, facial droop, or headache. Denied CP or SOB. She apparently experienced some head trauma 3 weeks prior when she tripped and fell and injured the left side of her face. She denied any previous TIA or CVA. By the time she arrived to the ED, her symptoms had resolved. There was concern for a TIA. *Had ADAM with aortic plaque, no thrombus noted *She underwent a MRI with no acute infarct. *Carotid artery ultrasound revealing no significant occlusion with < 50% stenosis in both right and left internal carotids. *Had ECHO with bubble study which showed NO nqpoh-ia-ygad shunt with normal EF and no valvular abnormalities. *Had TTE done in 05/10/19 showed mild LVH, EF 60% , Mitral valve leaflets appear mildly thickened. Mild mitral valve regurgitation .Results from this visit, or from the past:12/29/2020 PT/INR: PT 10.3, INR 1.12/29/2020 CMP: NA 140, K 4.4, CL 105, CO2 21, GL 111, BUN 20, CR 0.87, CA 9.4, AST 23, ALT 21, ALK PHOS 8612/29/2020 CK: 192/12/2020 LIPID: TC 147, TG 76, HDL 64, LDL 6812/29/2020 CBC: WBC 5.5, RBC 4.41, HGB 12.7, HCT 38.6, PLT 68212: Na 142, K 4.4 ,CL 105 ,CO2 24, GLU 94 ,BUN 15, CR 0.83,06/26/19: TC 192, TG 80, HDL 62 ,LDL 114,03/22/19 BMP: NA 141, K 3.8, CL 103, CO2 31, GLU 91, BUN 12, CR .9003/22/19 FLP: TC 168, TR 58, HDL 43, LDL 934 CBC: WBC 4.6, HGB 12.4, HCT 38.1, PLT 250EKG 12/23/20:Sinus tachycardia,low voltage chest leads,non-specific ST depression inferolateral leads,Non-specifc ST depression anterior leads.10/06/20 EKG: NSR5 EKG: low voltage, chest leads10/19/20 VENOUS REFLUX: Severe bilateral reflux disease noted.ADAM 05/10/2019 No evidence of intracardiac thrombus, there is evidence of mild to moderate atherosclerotic plaque noted in the descending aorta and in the aortic arch possibly the cause of embolizationecho 03/24/19 1) normal left ventricular systolic function no focal wall motion abnormalities ,normal left ventricular size normal left ventricular diastolic function EF is visually estimated at 60-65% E/E 9 is minimally elevated Global longitudinal strain is normal at 18.6% 2) Left atrial size is with in upperlimits of normal 3) Right atrium with in upper limits of normal 4) Mild mitral regurgitation 5) Right ventricular systolic pressure could be estimated du to inadequate visualization of the tricuspid regurgitation jet Trivial regurgitation jet Trivial regurgitation in the tricuspid valve 6) Trivial pericardial effusion 7) Dilated IVC with respiratory collapse consistent with elevated right atrai pressureUS, duplex, carotid artery ) < 50% stenosis in the right internal carotid artery 2) < 50 % stenosis in the left internal carotid fiuqpv21/03/19 TDM: Negative stress test. Normal LV systolic function. LVEF 62% Pritesh Mario MD [address] [place], [address], [facility] 08/26/2022 11:57:46 02/24/2023 text/html 02/24/23CC : [facility] follow [id number] female with a PMH of hypertension, chronic cervical dystonia, former tobacco dependence who presents today for 6 month follow-up. She was last seen in the clinic on 08/26/22, since then she is doing well nowShe denies ER visits and hospitalizations since she was last seen. Today reports:Denies chest pain.Denies shortness of breath at rest. Has mild dyspnea on exertion.No orthopnea. No PNDs.Denies heart palpitations.Denies dizziness. Denies syncope or near syncope.No ankle or leg edema.No major bleeding events.No reported side effects from medications. Taking medications as prescribed with no missed doses.Denies snoring, daytime somnolence and AM headache.*Last LDL was 68 done on 12/28/20.Pt dose not takes any statins. *Had Negative left-sided venous Doppler study on 05/27/22. 02/17/22:Na 140,K 4.9,Cl 102,Co2 22,Glu 112,Bun 18,Cr 0.91,ALT 43,AST 36.02/17/22:Wbc 5.5,Rbc 4.67,Hgb 13.3,Hct 40.4,Plat 308. She has had significant relief following iliac stent placement. She remains on Eliquis 5mg BID. 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 *Had ADAM with aortic plaque, no thrombus noted *She underwent a MRI with no acute infarct. *Carotid artery ultrasound revealing no significant occlusion with < 50% stenosis in both right and left internal carotids. *Had ECHO with bubble study which showed NO tvdid-hh-ffvq shunt with normal EF and no valvular abnormalities. *Had TTE done in 05/10/19 showed mild LVH, EF 60% , Mitral valve leaflets appear mildly thickened. Mild mitral valve regurgitation .Results from this visit, or from the past:12/29/2020 PT/INR: PT 10.3, INR 1.12/29/2020 CMP: NA 140, K 4.4, CL 105, CO2 21, GL 111, BUN 20, CR 0.87, CA 9.4, AST 23, ALT 21, ALK PHOS 862 CK: 192 LIPID: TC 147, TG 76, HDL 64, LDL 682 CBC: WBC 5.5, RBC 4.41, HGB 12.7, HCT 38.6, PLT 49812: Na 142, K 4.4 ,CL 105 ,CO2 24, GLU 94 ,BUN 15, CR 0.83,06/26/19: TC 192, TG 80, HDL 62 ,LDL 114,4 BMP: NA 141, K 3.8, CL 103, CO2 31, GLU 91, BUN 12, CR .9003/22/19 FLP: TC 168, TR 58, HDL 43, LDL 934 CBC: WBC 4.6, HGB 12.4, HCT 38.1, PLT 250EKG 12/23/20:Sinus tachycardia,low voltage chest leads,non-specific ST depression inferolateral leads,Non-specifc ST depression anterior leads.10/06/20 EKG: NSR04/19/19 EKG: low voltage, chest leads10/19/20 VENOUS REFLUX: Severe bilateral reflux disease noted.ADAM 05/10/2019 No evidence of intracardiac thrombus, there is evidence of mild to moderate atherosclerotic plaque noted in the descending aorta and in the aortic arch possibly the cause of embolizationecho 03/24/19 1) normal left ventricular systolic function no focal wall motion abnormalities ,normal left ventricular size normal left ventricular diastolic function EF is visually estimated at 60-65% E/E 9 is minimally elevated Global longitudinal strain is normal at 18.6% 2) Left atrial size is with in upperlimits of normal 3) Right atrium with in upper limits of normal 4) Mild mitral regurgitation 5) Right ventricular systolic pressure could be estimated du to inadequate visualization of the tricuspid regurgitation jet Trivial regurgitation jet Trivial regurgitation in the tricuspid valve 6) Trivial pericardial effusion 7) Dilated IVC with respiratory collapse consistent with elevated right atrai pressureUS, duplex, carotid artery ) < 50% stenosis in the right internal carotid artery 2) < 50 % stenosis in the left internal carotid mggirz15/03/19 TDM: Negative stress test. Normal LV systolic function. LVEF 62% Pritesh Mario MD [address] [place], [address], [facility] 02/24/2023 11:42:08 09/18/2023 text/html 09/18/23CC : Car diac follow up dyspnea on -iukb-nly female with a PMH of hypertension, Hyperlipidemia, Obstructive sleep apnea, chronic cervical dystonia, former tobacco dependence who presents today for 6 month follow-up with ECHO results. She was last seen in the clinic on 02/24/23, since then she is doing well now. She reporting occasional chest heaviness denied dyspnea on exertion. Her last echo showed trace pericardial effusion with normal EF. Last LDL is 87 done in 12/2022 and she is taking repatha.She denies ER visits and hospitalizations since she was last seen. Today reports:Denies chest pain.Denies shortness of breath at rest. Has mild dyspnea on exertion.No orthopnea. No PNDs.Denies heart palpitations.Denies dizziness. Denies syncope or near syncope.No ankle or leg edema.No major bleeding events.No reported side effects from medications. Taking medications as prescribed with no missed doses.Denies snoring, daytime somnolence and AM headache.*Last LDL was 68 done on 12/28/20.Pt dose not takes any statins. *Had ECHO on 04/07/23 showed LV chamber size is normal. LV wall thickness is normal. The estimated left ventricle ejection fraction is 65-70% (normal). The aortic valve is mildly calcified. The mitral valve leaflet is mildly thickened. There is a trace pericardial effusion. *Xr, Chest 04/03/23: No acute cardiopulmonary disease. Previously: *Had Negative left-sided venous Doppler study on 05/27/22. She has had significant relief following iliac stent placement. She remains on Eliquis 5mg BID. 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 *Had ADAM with aortic plaque, no thrombus noted *She underwent a MRI with no acute infarct. *Carotid artery ultrasound revealing no significant occlusion with < 50% stenosis in both right and left internal carotids. *Had TTE done in 05/10/19 showed mild LVH, EF 60% , Mitral valve leaflets appear mildly thickened. Mild mitral valve regurgitation .Results from this visit, or from the past:12/29/2020 PT/INR: PT 10.3, INR 1.12/29/2020 CMP: NA 140, K 4.4, CL 105, CO2 21, GL 111, BUN 20, CR 0.87, CA 9.4, AST 23, ALT 21, ALK PHOS 862 CK: 192 LIPID: TC 147, TG 76, HDL 64, LDL 682 CBC: WBC 5.5, RBC 4.41, HGB 12.7, HCT 38.6, PLT 4856506/26/19: Na 142, K 4.4 ,CL 105 ,CO2 24, GLU 94 ,BUN 15, CR 0.83,06/26/19: TC 192, TG 80, HDL 62 ,LDL 114,03/22/19 BMP: NA 141, K 3.8, CL 103, CO2 31, GLU 91, BUN 12, CR .9003/22/19 FLP: TC 168, TR 58, HDL 43, LDL 934 CBC: WBC 4.6, HGB 12.4, HCT 38.1, PLT 250EKG 12/23/20:Sinus tachycardia,low voltage chest leads,non-specific ST depression inferolateral leads,Non-specifc ST depression anterior leads.10/06/20 EKG: NSR04/19/19 EKG: low voltage, chest leads10/19/20 VENOUS REFLUX: Severe bilateral reflux disease noted.ADAM 05/10/2019 No evidence of intracardiac thrombus, there is evidence of mild to moderate atherosclerotic plaque noted in the descending aorta and in the aortic arch possibly the cause of embolizationecho 03/24/19 1) normal left ventricular systolic function no focal wall motion abnormalities ,normal left ventricular size normal left ventricular diastolic function EF is visually estimated at 60-65% E/E 9 is minimally elevated Global longitudinal strain is normal at 18.6% 2) Left atrial size is with in upperlimits of normal 3) Right atrium with in upper limits of normal 4) Mild mitral regurgitation 5) Right ventricular systolic pressure could be estimated du to inadequate visualization of the tricuspid regurgitation jet Trivial regurgitation jet Trivial regurgitation in the tricuspid valve 6) Trivial pericardial effusion 7) Dilated IVC with respiratory collapse consistent with elevated right atrai pressureUS, duplex, carotid artery ) < 50% stenosis in the right internal carotid artery 2) < 50 % stenosis in the left internal carotid paqdhg13/03/19 TDM: Negative stress test. Normal LV systolic function. LVEF 62% ROBERTO Wright - [facility] 09/18/2023 10:22:44 OBGyn Episode No OBEpisode recorded.
--- OUTSIDE RECORDS SUMMARY | 2025-03-12 07:52 | XMS_ITS | Referral Summary ---
Author Organization [facility] Address [facility] [place] [address] Care Team Providers Care Roustabout Crew Pusher Name Role Phone Audelia Evans NP Primary Care Provider [phone] Georgie Santacruz DPM Unavailable [phone] Allergies Active Allergy Reactions Criticality Noted Date Comments Sulfa (Sulfonamide Antibiotics) Rash Medium Medications lisinopriL (PRINIVIL,ZESTRIL ) 10 mg tablet Take 1 tablet (10 mg total) by mouth daily 08/12/2024 Active Repatha SureClick 140 mg/mL pen injector every 21 days 08/10/2024 Active mv-min/iron/folic /calcium/vitK (WOMEN'S MULTIVITAMIN ORAL) Take by mouth daily Active aspirin 325 mg tablet Take 1 tablet (325 mg total) by mouth daily 30 tablet 1 10/05/2024 Active Active Problems Problem Noted Date Diagnosed Date Cervical dystonia 12/04/2024 Assessment & Plan (12/04/2024 3:20 PM CARE MANAGEMENT ASSOCIATE): Melissa Hayward is a 74yo F with long-standing severe cervical dystonia, characterized by right-sided head turn, right head tilt, and retrocollis. This is associated with a frequent mild head tremor, and some associated dystonia of the right proximal arm. She previously responded to botox but did not enjoy the repeat injections, and feels that she developed resistance to the medication and so discontinued therapy. It is not clear at this time if she viewed resistance as requiring more injections or if she started lacking response. She was interested in discussion of any new treatments for dystonia, particularly nerve clipping. We discussed botulinum toxin (A and B) and DBS as current options. She opted to pray on the topic and will reach back out. If she elects to proceed with botulinum toxin, it may be beneficial to do a forehead response test prior to the first full injection. Calcaneal spur of right foot 09/09/2024 Tendonitis, Achilles, right 09/09/2024 Pain in ear 02/08/2012 Social History Tobacco Use Types Packs/Day Years Used Date Smoking Tobacco: Former Smokeless Tobacco: Never Tobacco Cessation:Counseling Given: Not Answered AUDIT-C Answer Date Recorded Frequency of Alcohol Consumption Not on file 10/01/2024 Q2: How many drinks containi ng alcohol do you have on a typical day when you are drinking? Patient does not drink Frequency of Binge Drinking Not on file 03/2024 Personal Safety Answer Date Recorded Have you ever been in or are you currently in a harmful physical or emotional relationship or is someone making you feel afraid or unsafe? Denies 10/04/2024 Comments Unknown Sex and Gender Information Value Date Recorded Sex Assigned at Not on file Legal Sex Female 2:26 AM CARE MANAGEMENT ASSOCIATE Gender Identity Not on file Sexual Orientation Not on file Last Filed Vital Signs Vital Sign Reading Time Taken Comments Blood Pressure 166/84 12/04/2024 1:12 PM CARE MANAGEMENT ASSOCIATE Pulse 128 12/04/2024 1:12 PM CARE MANAGEMENT ASSOCIATE Temperature 35.9 C (96.7 F) 10/04/2024 1:43 PM CARE MANAGEMENT ASSOCIATE Respiratory Rate 18 10/04/2024 1:43 PM CARE MANAGEMENT ASSOCIATE Oxygen Saturation 98% 10/04/2024 1:43 PM CARE MANAGEMENT ASSOCIATE Inhaled Oxygen Concentration - - Weight 91.3 kg (201 lb 3.2 oz) 12/04/2024 1:12 P M CARE MANAGEMENT ASSOCIATE Height 160 cm (5' 3 ) 12/04/2024 1:09 PM CARE MANAGEMENT ASSOCIATE Body Mass Index 35.64 12/04/2024 1:09 PM CARE MANAGEMENT ASSOCIATE Plan of Treatment Not on file Medical Devices Implanted Type Area Special Investigator Device Identifier Shelf Expiration Date Model / Serial / Lot [employer] Suturebridge [place] Drill Guide Punch Tap Set Implant Achilles [id number] - [id number] Implanted:Qty: 1 on 10/04/2024 by Georgie Santacruz DPM at [facility] Right: Foot [employer] 06/26/2027 [id number] / / [id number] Insurance MEDICARE [facility] MEDICARE [employer] [place] [employer] [place] Care Teams Roustabout Crew Pusher Relationship Specialty Start Date End Date Audelia Evans NP PCP - General Nurse Practitioner 06/28/24 Georgie Santacruz DPM [address] [place] [id number] Consulting Physician Foot and Ankle Surg 10/04/24
--- OUTSIDE RECORDS SUMMARY | 2025-03-12 07:52 | XMS_ITS | Clinical Summary ---
Author Organization [facility] Address [address] [place] [address] Care Team Providers Care Napkin Machine Operator Name Role Phone Unavailable Primary Care Provider Unavailabl e Social History Tobacco Use Types Packs/Day Years Used Date Smoking Tobacco: Never Assessed Comments Unknown Sex and Gender Information Value Date Recorded Sex Assigned at Not on file Legal Sex Female 5:53 PM ENVIRONMENTAL SCIENTIST Gender Identity Not on file Sexual Orientation Not on file Plan of Treatment Health Maintenance Due Date Last Done Comments Colorectal Cancer Screening Colonoscopy (10 Years) 1950 Hepatitis C 1967 DTaP, Tdap and Td Vaccines ( 1 - Tdap) 1968 Zoster Vaccines (1 of 2) 1999 Dexa Scan (General) 2014 Pneumococcal Vaccine: 50+ Ye ars (1 of 1 - PCV) 2014 COVID-19 Vaccine ( - 2023-2 5 season) 2024 RSV Immunization or 60+ Years (1 - 1-dose 75+ series) 2024 Meningococcal B Vaccine Aged Out No l onger eligible based on patient's age to complete this topic Meningococcal Vaccine Aged Out No susy leonarda eligible based on patient's age to complete this topic RSV Immunizations Under 20 Months Aged Out No longer eligible based on patient's age to complete this topic
--- OUTSIDE RECORDS SUMMARY | 2025-03-12 07:52 | XMS_ITS | Clinical Summary ---
Author Organization [facility] Address Replaced by [facility] [place] [address] Care Team Providers Care Monkey Trainer Name Role Phone Audelia Evans NP Primary Care Provider [phone] Georgie Santacruz DPM Unavailable [phone] Allergies Active Allergy Reactions Criticality Noted Date [...] 12/04/2024 Assessment & Plan (12/04/2024 3:20 PM COAL PASSER): Melissa Hayward is a 74yo F with [...] Achilles, right 09/09/2024 Pain in ear 02/08/2012 Surgical History Surgery Date Site/Laterality Comments BREAST SURGERY Bilateral Bilateral Mastectomy CERVICAL FUSION ESOPHAGOGASTRODUODENOSCOPY with stretching of the esophagus ILIAC VEIN ANGIOPLASTY / STENTING 01/06/2021 Left Medical History Medical History Date Comments PONV (postoperative nausea and vomiting) TIA (transient ischemic attack) GERD (gastroesophageal reflux disease) Cancer (HCC) Left Breast Canc er Social History Tobacco Use Types Packs/Day Years [...] on file Legal Sex Female 2:26 AM COAL PASSER Gender Identity Not on file Sexual Orientation Not on file Obstetrics History Last Filed Vital Signs Vital Sign Reading Time Taken Comments Blood Pressure 166/84 12/04/2024 1:12 PM COAL PASSER Pulse 128 12/04/2024 1:12 PM COAL PASSER Temperature 35.9 C (96.7 F) 10/04/2024 1:43 PM COAL PASSER Respiratory Rate 18 10/04/2024 1:43 PM COAL PASSER Oxygen Saturation 98% 10/04/2024 1:43 PM COAL PASSER Inhaled Oxygen Concentration - - Weight 91.3 kg (201 lb 3.2 oz) 12/04/2024 1:12 P M COAL PASSER Height 160 cm (5' 3 ) 12/04/2024 1:09 PM COAL PASSER Body Mass Index 35.64 12/04/2024 1:09 PM COAL PASSER Plan of Treatment Health Maintenance Due Date Last Done Comments Colon Cancer Screening-Colonoscopy 1950 Hepatitis C Screening 1950 Osteoporosis Screening-Bone Density Scan 1950 Hepatitis B Screening 1967 Pneumococcal vaccine 65+ (1 of 1 - PCV) 1999 Zoster Vaccine (1 of 2) 1999 Well Visit 65+ 2014 DTaP/Tdap/Td Vaccine (2 - Td or Tdap) 03/20/2024 Covid-19 Vaccine ( - season) 2024 12/06/2021, 02/26/2021, 02/05/2021 Influenza Vaccine (#1) 2024 09/15/2023, 2019 Fall Risk Assessment 09/09/2025 09/09/2024 Depression Screening 12/04/2025 12/04/2024 Medical Devices Implanted Type Area Major Sales Associate Device Identifier Shelf Expiration Date Model / Serial / Lot [employer] Suturebridge [place] Drill Guide Punch Tap Set Implant Achilles [id number] - [id number] Implanted:Qty: 1 on 10/04/2024 by Georgie Santacruz DPM at [facility] Right: Foot [employer] 06/26/2027 [id number] P / / [id number] Insurance MEDICARE [employer] Member Subscriber Plan / Payer (Ef fective 2014-Present) Name:Melissa Hayward Relation to Subscriber:Self Name:Melissa Hayward Payer ID:[id number] Group ID:Not on file Type:COMMERCIAL Address: [facility] [address] [place], [place] MEDICARE [employer] [place] Member Subscriber Plan / Payer (Ef fective 2014-Present) Name:Melissa Hayward Relation to Subscriber:Self Name:Melissa Hayward Payer ID:[id number] Group ID:Not on file Type:[employer] Address: [facility] [address] [place], [place] Care Teams Monkey Trainer Relationship Specialty Start Date End Date Audelia Evans NP PCP - General Nurse Practitioner 06/28/24 Georgie Santacruz DPM [address] [place] [id number] Consulting Physician Foot and Ankle Surg 10/04/24
--- NOTE | 2025-03-12 07:54 | ECHO_ITS ---
Patient Info Name: Melissa Hayward Age: 74 years : 1950 Gender: Female Ht: 64 in Wt: 198 lbs BSA: 2.05 m2 HR: 79 bpm BP: 153 / 71 mmHg Technical Quality: Good Exam Date: 03/12/2025 8:09 AM Exam Location: Echo Lab Patient Status: Outpatient Admit Date: 03/12/2025 Staff Ordering Physician: Ced Dee DO Wire Steward: María Cerna RDCS Attending Provider: Ced Dee DO Referring Physician: Luiz UP; Exam Type: CA echo doppler color flow Study Info Indications R06.09 - Other forms of dyspnea Complete two-dimensional, color flow and Doppler transthoracic echocardiogram is performed. Summary 1. Complete two-dimensional, color flow and Doppler transthoracic echocardiogram is performed. 2. Left ventricular chamber dimension is normal. 3. Left ventricular systolic function is normal, estimated at 60-65%. 4. The left ventricular diastolic function is abnormal. 5. E/e' 10 is mildly elevated. 6. Left atrial chamber dimension is mildly enlarged. 7. There is mild mitral valve regurgitation. 8. No pulmonary hypertension, estimated pulmonary arterial systolic pressure is 28 mmHg. Left Ventricle E/e' 10 is mildly elevated. Left ventricular chamber dimension is normal. Left ventricular systolic function is normal, estimated at 60-65%. The left ventricular diastolic function is abnormal. Right Ventricle Right ventricular chamber dimension is normal. Right ventricular systolic function is normal. Left Atria Left atrial chamber dimension is mildly enlarged. Right Atria Right atrial chamber dimension is normal. Aortic Valve The aortic valve is trileaflet. There is no aortic valve stenosis. There is no aortic valve regurgitation. Pulmonic Valve There is no pulmonic regurgitation. Mitral Valve There is no mitral valve stenosis. There is mild mitral valve regurgitation. Tricuspid Valve There is no tricuspid valve regurgitation. No pulmonary hypertension, estimated pulmonary arterial systolic pressure is 28 mmHg. Pericardium/Pleural There is no pericardial effusion. Inferior Vena Cava Normal inferior vena cava with >50% collapse upon inspiration consistent with normal right atrial pressure, 5 mmHg. Aorta The aortic root size at the sinus of Valsalva is normal. Left Ventricular Outflow Tract Name Value Normal LVOT 2D LVOT Diameter 1.9 cm LVOT Doppler LVOT Peak Gradient 4 mmHg LVOT Mean Gradient 3 mmHg LVOT VTI 25 cm LVOT VTI/AV VTI Ratio 0.8 LVOT Stroke Volume 69 ml LVOT CO 13.2 l/min LVOT CI 6.5 l/min/m2 Pulmonic Valve Name Value Normal PV Doppler PV Peak Gradient 4 mmHg Mitral Valve Name Value Normal MV Doppler MV Decel [place] 422 cm/s2 MV PHT 53 ms MV Area (PHT) 4.2 cm2 4.0-5.0 MV Diastolic Function MV E Peak Velocity 77 cm/s MV A Peak Velocity 74 cm/s MV E/A 1.0 MV Decel Time 182 ms MV Annular TDI MV E/e' (Septal) 11.8 <=8.0 MV E/e' (Lateral) 10.1 <=8.0 MV E/e' (Average) 11.0 Tricuspid Valve Name Value Normal TV Regurgitation Doppler TR Peak Velocity 239 cm/s TR Peak Gradient 23 mmHg Estimated PAP/RSVP RA Pressure 5 mmHg <=5 PA Systolic Pressure 28 mmHg <36 RV Systolic Pressure 28 mmHg <36 Aorta Name Value Normal Ascending Aorta Ao Root Diameter (MM) 2.8 cm Ao Root Diam Index (MM) 1.3 cm/m2 Aortic Valve Name Value Normal AV Doppler AV Peak Velocity 133 cm/s AV Peak Gradient 7 mmHg AV Mean Gradient 5 mmHg AV VTI 31 cm AV Area (Cont Eq VTI) 2.2 cm2 >=3.0 AV Area (Cont Eq Eugene) 2.2 cm2 AV Regurgitation 2D LVOT Area 2.7 cm2 Ventricles Name Value Normal LV Dimensions 2D/MM IVS Diastolic Thickness (2D) 1.0 cm 0.6-1.0 LVID Diastole (2D) 4.7 cm 3.8-5.2 LVIW Diastolic Thickness (2D) 0.9 cm 0.6-0.9 LVID Systole (2D) 2.9 cm 2.2-3.5 LVOT Diameter 1.9 cm LV Mass (2D Cubed) 155.42 g 67.00-162.00 LV Mass Index (2D Cubed) 76 g/m2 43-95 Relative Wall Thickness (2D) 0.38 LV Fractional Shortening/Ejection Fraction 2D/MM LV Fractional Shortening (2D) 39 % 27-45 LV EF (2D Teicholz) 70 % 54-74 LV Diastolic Volume (4C MOD) 74 ml LV EF (4C MOD) 59 % LV Diastolic Volume (2C MOD) 73 ml LV EF (2C MOD) 56 % LV Diastolic Volume (BP MOD) 78 ml 46-106 LV Diastolic Volume Index (BP MOD) 38 ml/m2 29-61 LV Systolic Volume (BP MOD) 32 ml 14-42 LV Systolic Volume Index (BP MOD) 16 ml/m2 8-24 LV EF (BP MOD) 59 % 54-74 LV Diastolic Length (4C) 6.2 cm LV Systolic Length (4C) 5.2 cm LV Stroke Volume (4C MOD) 44 ml Atria Name Value Normal LA Dimensions LA Dimension (MM) 3.7 cm 2.7-3.8 LA Volume (4C A-L) 59 ml LA Volume (BP A-L) 53 ml RA Dimensions RA Area (4C) 13.4 cm2 <=18.0 Report Signatures
== END 2025-03-12 07:48 | disposition home or self-care (01) ==
PROVIDERS: PCP Internal Medicine; Visit Provider Internal Medicine Cardiovascular Disease
DX: R06.09 Other forms of dyspnea (principal); I34.0 Nonrheumatic mitral (valve) insufficiency; I51.89 Other ill-defined heart diseases
CPT/HCPCS: 93306

== ENCOUNTER 2025-04-16 08:21 | Outpatient (CLI) | payer MEDICARE, OTHER, SELFPAY ==
--- OUTSIDE RECORDS SUMMARY | 2025-04-16 09:03 | XMS_ITS | Data Portability ---
Author Organization [place] - [facility] OFFICE Address [address] [place] [address] Care Team Providers Care Clinical Study Manager Name Role Phone BROOKE PELLETIER Primary Care [...] in 0.4 mg sublingual tablet 2022 023 [id number], [address], [place], [id number], 10:22:53 Patient TargetsNo targets recorded. Patient Instructions Encounter Date Encounter Id Patient Instructions Last Modified By Organization Details Last Modified Time 02/22/2022 [id number] Weight loss 20 pounds Exercise advised Low cholesterol diet advised Low sodium diet advised. [email or web address] Not available 02/22/2022 13:23:18 08/26/2022 [id number] Weight loss 20 pounds Exercise advised Low cholesterol diet advised Low sodium diet advised. 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 [place] [facility] 9 07:08:49 Paresthesia 73494021 Active 2018 Left sided [place] Kumar [place] [facility] 9 07:15:22 Malignant tumor of breast 766057324 Active 2018 Kangpadmini Stephens [place], [place] - [facility] 9 17:09:27 Dyslipidemia 476052091 Active 2018 Pearl [place] [facility] 3 12:23:49 Dyspnea on exertion 12470394 Active 2018 Pearl [place] [facility] 9 11:56:43 Benign hypertension 84496601 Active 2018 Pearl [place] [facility] 3 12:23:44 Obstructive sleep apnea syndrome 45098478 Active 2018 Pearl [place] [facility] 3 12:24:07 Transient cerebral ischemia 613670409 Active 2019 [place] [facility] 0 17:18:06 Family history of transient ischemic attack 377641172 Active 2019 Pearl [place] [facility] 0 12:26:01 Problem Notes None recorded. Procedures Surgical History Date Name Laterality Status Provider Name and Address Organization Details Recorded Time [facility] 04/16/2019 17:09:59 Unlisted px foot/toes completed Kang Mes [place] - [facility] 04/16/2019 17:10:14 primary fusion of cervical spine completed Pearl Stephens [facility] 04/16/2019 17:10:32 Imaging Results [...] Not available Not available Not available 04/16/2019 [id number] SNOMED Pearl infante [facility] 9 17:10:51 Medications Name [...] Not Available Not Available Not Available Card[facility] [place] Benefits 1 cap qd ( vit B6 [...] Updated DateTime 1 160.02 cm 35.4 kg/m2 22559.4 7 g 99 /min 96 % 96 % 106 mm[Hg] 62 mm[Hg] Annmarie Huston [facility] 1 15:12:32 Date Recorded Body height Body mass index (BMI) Body weight Provider Name and Address Organization Details Last Updated DateTime 02/22/2022 160.02 cm 35.4 kg/m2 31688.47 g Pritesh Mario MD [address] [place], [address], [facility] 02/22/2022 12:28:45 Date Recorded Heart rate Oxygen saturation Oxygen saturation in Arterial blood by Pulse oximetry Systolic blood pressure Diastolic blood pressure Provider Name and Address Organization Details Last Updated DateTime 2 85 /min 97 % 97 % 138 mm[Hg] 82 mm[Hg] Ismael Cerna [facility] 2 12:35:45 Date Recorded Body height Body mass index (BMI) Body weight Oxygen saturation Oxygen saturation in Arterial blood by Pulse oximetry Heart rate Systolic blood pressure Diastolic blood pressure Provider Name and Address Organization Details Last Updated DateTime 3 160.02 cm 35.8 kg/m2 27964.7 4 g 84 % 84 % 94 /min 118 mm[Hg] 82 mm[Hg] KIMBERLEY HERNANDEZ [facility] 3 11:33:30 Date Recorded Body height Body mass index (BMI) Body weight Heart rate Respiratory rate Oxygen saturation Oxygen saturation in Arterial blood by Pulse oximetry Systolic blood pressure Diastolic blood pressure Provider Name and Address Organization Details Last Updated DateTime 3 160.02 cm 35.1 kg/m2 40177.2 9 g 72 /min 16 /min 98 % 98 % 132 mm[Hg] 82 mm[Hg] Ismael Cerna [facility] 3 09:44:39 Social History Question Answer Notes LastModified by NaHere Details LastModified Time Tobacco Smoking Status Former Smoker quit 1976 Not Available [facility] 09/29/2020 03:30:41 Which Illicit Or Recreational Drugs Have You Used? Eduardo [id number] Information not available 09/29/2020 Live Alone Or With Others? Alone Information not available 04/16/2019 What Was The Date Of Your Most Recent Tobacco Screening? 05/17/2019 [id number] Information not available 09/29/2020 How Much Tobacco Do You Smoke? 1.5 PPD [id number] Information not available 09/29/2020 How Many Years Have You Smoked Tobacco? 8 [id number] Information not available 09/29/2020 Sex: Unknown Functional Status Question Answer Note LastModified by NaHere Details LastModified Time What is your level of alcohol consumption? None [id number] Information not available 09/29/2020 Do you or have you ever used smokeless tobacco? Former smokeless tobacco user [id number] Information not available 09/29/2020 Do you or have you ever used e-cigarettes or vape? Never used electronic cigarettes [id number] Information not available 09/29/2020 Mental Status None recorded. Family History Relationship Description Onset Age of this Age Resolved Age Notes LastModified by Organization Details LastModified Time Father Malignant neoplasm of lung hmesto Not available 2018 17:11:07 Medical History Condition Response Hyperlipidemia Y Cancer Y Sleep Apnea Y Hypertension Y Gynecological HistoryNo gynecological history recorded. Obstetrics History GPAL:G 0 P 0 0 0 0 Past Encounters Encounter ID Performer Location Encounter Start Date Encounter Closed Date Diagnosis/Indication Diagnosis SNOMED-CT Code Diagnosis ICD10 Code Diagnosis Note [id number] Pritesh Mario MD [place] OFFICE [address] [place] [address] 04/19/2019 10:41:04 04/19/2019 12:44:29 History of transient ischemic attack 323371552 Z86.73 ADAM Dyspnea on exertion 6084 5006 R06.09 Treadmill Myoview Stress test, has high Barry[place] Risk score. Has Known CAD, or CAD risk equivalent . To look for any ischemia. Dyslipidemia 462009736 E 78.5 Had muscle ache from Lipitor, and crestormay need Repatha Benign hypertension 1072 5009 I10 Blood pressure is elevated today, but this is only one reading, will keep close follow up, and consider medication change if blood pressure is still elevated next visit. Obstructiv e sleep apnea syndrome 00934617 G47.33 on Cpap [id number] Pritesh Mario MD [place] OFFICE [address] [place] [address] 05/17/2019 10:55:14 06/22/2019 20:51:41 History of transient ischemic attack 442033042 Z86.73 ADAM with no thrombus, but has aortic plaqueNeed s to keep LDL less than 70, and HDL more than 40. Dyspnea on exertion 6084 5006 R06.09 Treadmill Myoview Stress test, has high Barry[place] Risk score. Has Known CAD, or CAD risk equivalent . To look for any ischemia. Dyslipidemia 491526630 E 78.5 Had muscle ache from Lipitor, and crestor . will try Zetia firstmay need Repatha Benign hypertension 1072 5009 I10 Blood pressure is elevated today, but this is only one reading, will keep close follow up, and consider medication change if blood pressure is still elevated next visit. Obstructiv e sleep apnea syndrome 88405877 G47.33 on Cpap Coronary arteriosclerosis 27128601 I25.10 will start on plavix for 3 months. ADAM with no thrombus, but has aortic plaque Needs to keep LDL less than 70, and HDL more than 40. [id number] Pritesh Mario MD [facility] Office [address] [place] [address] 07/01/2019 09:36:16 07/01/2019 10:45:50 History of transient ischemic attack 229863722 Z86.73 ADAM with no thrombus, but has aortic plaqueNeed s to keep LDL less than 70, and HDL more than 40. Dyspnea on exertion 6084 5006 R06.09 Treadmill Myoview Stress test, has high Barry[place] Risk score. Has Known CAD, or CAD risk equivalent . To look for any ischemia. Dyslipidemia 429837986 E 78.5 Had muscle ache from Lipitor, and crestor . will try Zetia firstmay need Repatha Benign hypertension 1072 5009 I10 Blood pressure is elevated today, but this is only one reading, will keep close follow up, and consider medication change if blood pressure is still elevated next visit. Obstructiv e sleep apnea syndrome 73355057 G47.33 on Cpap Coronary arteriosclerosis 86900016 I25.10 will start on plavix for 3 months. ADAM with no thrombus, but has aortic plaque Needs to keep LDL less than 70, and HDL more than 40. [id number] Pritesh Mario MD [place] OFFICE [address] [place] [address] 09/27/2019 09:58:47 10/14/2019 22:33:13 History of transient ischemic attack 802682494 Z86.73 On Plavix for past 6 months. [...] Normal LV systolic function. LVEF 62% Dyslipidemia 877898622 E 78.5 06/26/19: TC 192, TG 80, HDL 62 ,LDL 114,Intole rant of Crestor, Lipitor (muscle cramps). On Ezetimibe. With aortic plaque, she needs to have her LDL <70. Will order Repatha. Benign hypertension 1072 5009 I10 Controlled . Continue medication s. Obstructiv e sleep apnea syndrome 67824045 G47.33 on Cpap [id number] Pritesh Mario MD [place] OFFICE [address] [place] [address] 03/31/2020 10:07:54 03/31/2020 12:43:26 History of transient ischemic attack 547351935 Z86.73 Continue ASA Needs to keep LDL less than 70, and HDL more than 40. Dyspnea on exertion 6084 5006 R06.09 Improved. 04/29/19 TDM: Negative stress test. Normal LV systolic function. LVEF 62% Dyslipidemia 210230530 E 78.5 06/26/19: TC 192, TG 80, [...] good now Obstructiv e sleep apnea syndrome 94940921 G47.33 on Cpap [id number] Pritesh Mario MD [place] OFFICE [facility] [place] [address] 10/06/2020 10:46:06 10/06/2020 11:18:41 History of transient ischemic attack 898495323 Z86.73 Continue ASA No recurrence Dyspnea on exertion 6084 5006 R06.09 ImprovedTD M 04/29/2019 : Negative stress test. Normal LV systolic function. LVEF 62% Dyslipidemia 991024164 E 78.5 Needs to keep LDL less than 70, and HDL more than 40. 019 LDL 114 Now on Praluent injections d/t statin intoleranc e Will get fasting lipids for follow-up Benign hypertension 1072 5009 I10 Controlled on current regimen Obstructiv e sleep apnea syndrome 38470455 G47.33 Compliant with nightly CPAP use Edema of l ower extremity 375592949 R60.0 Venous duplex and reflux studyCompr ession stockings trial [id number] MD Alicia Andrew Office [address] [place] [address] 12/23/2020 16:11:54 12/23/2020 16:47:04 History of transient ischemic attack 381896517 Z86.73 In 2019Contin ue ASA No recurrence Dyspnea on exertion 6084 5006 R06.09 ImprovedTD M 04/29/2019 : Negative stress test. Normal LV systolic function. LVEF 62% Dyslipidemia 371053318 E 78.5 Needs to keep LDL less than 70, and HDL more than 40. 019 LDL 114 Now on Praluent injections d/t statin intoleranc eInsurance is switching her to repatha: Copay card Herlinda get fasting lipids for follow-up Benign hypertension 1072 5009 I10 Controlled on current regimen Obstructiv e sleep apnea syndrome 79696706 G47.33 Compliant with nightly CPAP use Edema of l ower extremity 760510568 R60.0 10/19/20 VENOUS REFLUX: Severe bilateral reflux disease noted.Will not wear compressio n socks, reports pain if she wears themEducat ed on thigh highs Peripheral venous insufficiency 16615722 I87.2 Will arrange for venogram with ivus. Consider EVLT [id number] MD Alicia Andrew Office [address] [place] [address] 01/14/2021 11:24:24 01/14/2021 11:43:30 History of transient ischemic attack 468077709 Z86.73 in 2019 with no recurrence Continue ASA Dyspnea on exertion 6084 5006 R06.09 ImprovedTD M 04/29/2019 : Negative stress test. Normal LV systolic function. LVEF 62% Dyslipidemia 705267089 E 78.5 Needs to keep LDL less than 70, and HDL more than 40. 021 LDL 68 Continue Repatha injections Will get fasting lipids for follow-up Benign hypertension 1072 5009 I10 Controlled on current regimen Obstructiv e sleep apnea syndrome 14331064 G47.33 Compliant with nightly CPAP use Edema of l ower extremity 283709778 R60.0 Resolved s/p left iliac vein stentLeg elevation and low salt diet advised Peripheral venous insufficiency 45569766 I87.2 s/p left iliac vein stent ()Now asymptomat icIVUS 01/06/2021 : Significan t compressio n of the left common iliac vein treated with Wallstent with good results. [id number] Pritesh Mario MD [place] Office [address] [place] [address] 02/15/2021 16:17:59 02/15/2021 16:42:26 History of transient ischemic attack 714529583 Z86.73 in 2019 with no recurrence Continue ASA Dyspnea on exertion 6084 5006 R06.09 ImprovedTD M 04/29/2019 : Negative stress test. Normal LV systolic function. LVEF 62% Dyslipidemia 476384252 E 78.5 Needs to keep LDL less than 70, and HDL more than 40. 021 LDL 68 Continue Repatha injections Will get fasting lipids for follow-up Benign hypertension 1072 5009 I10 Controlled on current regimen Obstructiv e sleep apnea syndrome 24025672 G47.33 Compliant with nightly CPAP use Edema of l ower extremity 958236375 R60.0 Resolved s/p left iliac vein stentLeg elevation and low salt diet advised Peripheral venous insufficiency 84043070 I87.2 s/p left iliac vein stent ()Now asymptomat icIVUS 01/06/2021 : Significan t compressio n of the left common iliac vein treated with Wallstent with good results.Tr ansition to full dose ASA and discontinu e Eliquis 02/15/2021 [id number] Pritesh Mario MD [place] OFFICE [address] [place] [address] 08/24/2021 14:54:50 08/24/2021 15:25:23 History of transient ischemic attack 055674420 Z86.73 in 2019 with no recurrence Continue ASA Dyspnea on exertion 6084 5006 R06.09 ImprovedTD M 04/29/2019 : Negative stress test. Normal LV systolic function. LVEF 62% Dyslipidemia 752691572 E 78.5 Needs to keep LDL less than 70, and HDL more than 40. 021 LDL 68 Continue Repatha injections Will get fasting lipids for follow-up Benign hypertension 1072 5009 I10 Controlled on current regimen Obstructiv e sleep apnea syndrome 12861938 G47.33 Compliant with nightly CPAP use Edema of l ower extremity 652248954 R60.0 Resolved s/p left iliac vein stentLeg elevation and low salt diet advised Peripheral venous insufficiency 61016693 I87.2 s/p left iliac vein stent ()Now asymptomat icIVUS 01/06/2021 : Significan t compressio n of the left common iliac vein treated with Wallstent with good results.Tr ansition to full dose ASA and discontinu e Eliquis 02/15/2021 [id number] Pritesh Mario MD [place] OFFICE [facility] [place] [address] 02/22/2022 11:47:18 02/22/2022 13:25:28 History of transient ischemic attack 881487380 Z86.73 in 2019 with no recurrence Continue ASA Dyspnea on exertion 6084 5006 R06.09 ImprovedTD M 04/29/2019 : Negative stress test. Normal LV systolic function. LVEF 62% Dyslipidemia 545012568 E 78.5 Needs to keep LDL less than 70, and HDL more than 40. 021 LDL 68 Continue Repatha injections Will get fasting lipids for follow-up Benign hypertension 1072 5009 I10 Controlled on current regimen Obstructiv e sleep apnea syndrome 95000471 G47.33 Compliant with nightly CPAP use Edema of l ower extremity 175186614 R60.0 Resolved s/p left iliac vein stentLeg elevation and low salt diet advised Peripheral venous insufficiency 98248600 I87.2 s/p left iliac vein stent ()Now asymptomat icIVUS 01/06/2021 : Significan t compressio n of the left common iliac vein treated with Wallstent with good results.Tr ansition to full dose ASA and discontinu e Eliquis 02/15/2021 [id number] Pritesh Mario MD [place] [facility]ICE [address] [place] [address] 08/26/2022 10:46:22 08/26/2022 11:59:30 History of transient ischemic attack 806355725 Z86.73 in 2019 with no recurrence Continue ASA Dyspnea on exertion 6084 5006 R06.09 ImprovedTD M 04/29/2019 : Negative stress test. Normal LV systolic function. LVEF 62% Dyslipidemia 507857733 E 78.5 Needs to keep LDL less than 70, and HDL more than 40. 021 LDL 68 Continue Repatha injections Will get fasting lipids for follow-up Benign hypertension 1072 5009 I10 Controlled on current regimen Obstructiv e sleep apnea syndrome 22946021 G47.33 Compliant with nightly CPAP use Edema of l ower extremity 325069354 R60.0 Resolved s/p left iliac vein stentLeg elevation and low salt diet advised Peripheral venous insufficiency 37313551 I87.2 s/p left iliac vein stent ()Now asymptomat icIVUS 01/06/2021 : Significan t compressio n of the left common iliac vein treated with Wallstent with good results.Tr ansition to full dose ASA and discontinu e Eliquis 02/15/2021 [id number] Pritesh Mario MD [place] OFFICE [address] [place] [address] 02/24/2023 11:00:44 02/24/2023 11:47:17 History of transient ischemic attack 278973964 Z86.73 in 2019 with no recurrence Continue ASA Dyspnea on exertion 6084 5006 R06.09 Obtain echo to evaluate for structural /functiona l disease.TD M 04/29/2019 : Negative stress test. Normal LV systolic function. LVEF 62% Dyslipidemia 679862487 E 78.5 Needs to keep LDL less than 70, and HDL more than 40. 021 LDL 68 Continue Repatha injections Will get fasting lipids for follow-up Benign hypertension 1072 5009 I10 Controlled on current regimen Obstructiv e sleep apnea syndrome 17217639 G47.33 Compliant with nightly CPAP use Edema of l ower extremity 840958962 R60.0 Resolved s/p left iliac vein stentLeg elevation and low salt diet advised Peripheral venous insufficiency 49013009 I87.2 s/p left iliac vein stent ()Now asymptomat icIVUS 01/06/2021 : Significan t compressio n of the left common iliac vein treated with Wallstent with good results. [id number] Pritesh Mario MD [place] [facility] [address] [place] [address] 09/18/2023 09:27:56 09/18/2023 10:42:35 History of transient ischemic attack 407032677 Z86.73 in 2019 with no recurrence Continue ASA Dyslipidemia 493734376 E 78.5 Needs to keep LDL less than 70, and HDL more than 40.12/2022 LDL 87Continue Repatha injections , she is rejecting zetiaWill get fasting lipids for follow-up Benign hypertension 1072 5009 I10 Controlled on current regimen Obstructiv e sleep apnea syndrome 27778547 G47.33 Compliant with nightly CPAP use Edema of l ower extremity 654955517 R60.0 Resolveds/ p left iliac vein stentLeg elevation and low salt diet advised Peripheral venous insufficiency 37895686 I87.2 s/p left iliac vein stent ()Now asymptomat icIVUS 01/06/2021 : Significan t compressio n of the left common iliac vein treated with Wallstent with good results. Dyspnea on exertion 6084 5006 R06.09 Treadmill Myoview Stress test, has high Barry[place] Risk score. Has Known CAD, or CAD [...] function. LVEF 62% Atypical chest pain 1025 59408 R07.89 Treadmill Myoview Stress test, has high Barry[place] Risk score. Has Known CAD, or CAD risk equivalent . To look for any ischemia. Pericardial effusion 373 740489 I31.39 trace pericarida l effusion per her last echowill repeat echo in 6 months Health Concerns Section Related Observation LastModified by Organization Detai ls LastModified Time None Recorded Concern Status LastModified by Organization Details LastModified Time None Recorded Advance Directives Directive None Recorded Payers Insurance Date Sequence Insurance Name Policy Number Policy Bonilla Covered Member ID Bonilla Member ID Guarantor Name 09/18/2023 2 [place] [id number] Melissa Hayward [id number] Melissa Hayward 05/27/2022 2 [employer] (MEDICARE SUPPLEMENT) Melissa Hayward [id number] Melissa Hayward 10/04/2023 1 [place] Melissa Hayward [id number] Melissa Hayward 10/04/2023 2 [employer] (MEDICARE SUPPLEMENT) Melissa Hernandeze [id number] Melissa Hayward Notes Date Note Type Note Provider Name and Address Organization Details Recorded Time 08/24/2021 text/html 08/24/21CC : Car diac follow [id number] female with a PMH of hypertension, chronic [...] with Wallstent with good results.She presented to [facility] on 03/21/19, after originally being seeing at [facility] in [place], [place] with complaints of intermittent, left upper arm numbness. Her PCP is from the [place] area so she decided to be transferred to [facility]. She underwent a head CT which was [...] ECHO with bubble study which showed NO gjvcq-gz-shqv shunt with normal EF and no valvular [...] 23, ALT 21, ALK PHOS 862 CK: 192/12/2020 LIPID: TC 147, TG 76, HDL 64, LDL 682 CBC: WBC 5.5, RBC 4.41, HGB 12.7, HCT 38.6, PLT 87739: Na 142, K 4.4 ,CL 105 ,CO2 [...] % stenosis in the left internal carotid ismprd55/03/19 TDM: Negative stress test. Normal LV systolic function. LVEF 62% Pritesh Mario MD [address] [place], [address], [facility] 08/24/2021 15:22:56 02/22/2022 text/html 02/22/22CC : Car diac follow up, dyspnea on [id number]-tzy female with a PMH of hypertension, chronic [...] with Wallstent with good results.She presented to [facility] on 03/21/19, after originally being seeing at [facility] in [place], [place] with complaints of intermittent, left upper arm numbness. Her PCP is from the [facility] so she decided to be transferred to [facility]. She underwent a head CT which was [...] ECHO with bubble study which showed NO bxwki-rt-ddxn shunt with normal EF and no valvular [...] 23, ALT 21, ALK PHOS 8612/29/2020 CK: 192 LIPID: TC 147, TG 76, HDL 64, LDL 6812/29/2020 CBC: WBC 5.5, RBC 4.41, HGB 12.7, HCT 38.6, PLT 35549/: Na 142, K 4.4 ,CL 105 ,CO2 [...] % stenosis in the left internal carotid xvukrr29/03/19 TDM: Negative stress test. Normal LV systolic function. LVEF 62% Pritesh Mario MD [address] [place], [address], [facility] - [facility] 02/22/2022 13:23:37 08/26/2022 text/html 08/26/22CC : Car diac follow up, dyspnea on [id number] female with a PMH of hypertension, chronic [...] Wallstent with good results. She presented to [facility] on 03/21/19, after originally being seeing at [facility] in [place], [place] with complaints of intermittent, left upper arm numbness. Her PCP is from the [place] area so she decided to be transferred to [facility]. She underwent a head CT which was [...] ECHO with bubble study which showed NO pjunt-xj-zslc shunt with normal EF and no valvular [...] 9.4, AST 23, ALT 21, ALK PHOS 862/12/2020 CK: 192/12/2020 LIPID: TC 147, TG 76, HDL 64, LDL 682 CBC: WBC 5.5, RBC 4.41, HGB 12.7, HCT 38.6, PLT 93404: Na 142, K 4.4 ,CL 105 ,CO2 [...] % stenosis in the left internal carotid kwenhg90/03/19 TDM: Negative stress test. Normal LV systolic function. LVEF 62% Pritesh Mario MD [address] [place], [address], [facility] 08/26/2022 11:57:46 02/24/2023 text/html 02/24/23CC : Car diac follow [id number] female with a PMH of hypertension, chronic [...] ECHO with bubble study which showed NO hkvzt-vv-pegj shunt with normal EF and no valvular [...] 9.4, AST 23, ALT 21, ALK PHOS 862/12/2020 CK: 192/12/2020 LIPID: TC 147, TG 76, HDL 64, LDL 6812/29/2020 CBC: WBC 5.5, RBC 4.41, HGB 12.7, HCT 38.6, PLT 05712: Na 142, K 4.4 ,CL 105 ,CO2 [...] % stenosis in the left internal carotid mdoymy33/03/19 TDM: Negative stress test. Normal LV systolic function. LVEF 62% Pritesh Mario MD [address] [place], [address], [facility] 02/24/2023 11:42:08 09/18/2023 text/html 09/18/23CC : Car diac follow up dyspnea on avrdvotg16-ttvo-mlu female with a PMH of hypertension, Hyperlipidemia, [...] 23, ALT 21, ALK PHOS 8612/29/2020 CK: 192 LIPID: TC 147, TG 76, HDL 64, LDL 6812/29/2020 CBC: WBC 5.5, RBC 4.41, HGB 12.7, HCT 38.6, PLT 21498: Na 142, K 4.4 ,CL 105 ,CO2 [...] % stenosis in the left internal carotid exiozi42/03/19 TDM: Negative stress test. Normal LV systolic function. LVEF 62% GOLDIE infante [place] - [facility] 09/18/2023 10:22:44 OBGyn Episode No OBEpisode recorded.
[2025-04-16 13:25] LABS: Alanine Aminotransferase 38 U/L (6-35); Albumin Level 4.3 g/dL (3.5-5.1); Alkaline Phosphatase 87 U/L (38-126); Anion Gap 9 mmol/L (4-12); Aspartate Amino Transferase 54 U/L (14-36); Bilirubin,Total 0.5 mg/dL (0.2-1.3); Blood Urea Nitrogen 23 mg/dL (7-17); Calcium 9.4 mg/dL (8.4-10.2); Carbon Dioxide 25 mmol/L (22-30); Chloride 107 mmol/L (98-107); Cholesterol 288 mg/dL (0-200); Estimated Glomerular Filt Rate 49; Glucose 101 mg/dL (65-110); HDL Direct 46 mg/dL; Potassium 4.6 mmol/L (3.4-5.0); Sodium 141 mmol/L (137-145); Triglycerides 188 mg/dL (<150)
[2025-04-16 13:36] LABS: LDL Cholesterol Direct 165 mg/dL
== END 2025-04-16 08:22 | disposition home or self-care (01) ==
LOC: ANHGOSHLAB 08:22
PROVIDERS: PCP Internal Medicine; Visit Provider Internal Medicine Cardiovascular Disease
DX: E78.5 Hyperlipidemia, unspecified (principal)
CPT/HCPCS: 36415; 80053; 80061

== ENCOUNTER 2025-07-29 10:02 | Outpatient (CLI) | payer MEDICARE, OTHER, SELFPAY ==
--- OUTSIDE RECORDS SUMMARY | 2025-07-29 10:30 | XMS_ITS | Clinical Summary ---
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 Phone Audelia Evans NP Primary Care Provider + [phone] Georgie Santacruz DPM Unavailable [phone] Allergies Active Allergy Reactions Criticality Noted Date [...] 12/04/2024 Assessment & Plan (12/04/2024 3:20 PM ADVERTISING REP): Melissa Hayward is a 74yo F with [...] on file Legal Sex Female 2:26 AM ADVERTISING REP Gender Identity Not on file Sexual Orientation Not on file Obstetrics History Last Filed Vital Signs Vital Sign Reading Time Taken Comments Blood Pressure 166/84 12/04/2024 1:12 PM ADVERTISING REP Pulse 128 12/04/2024 1:12 PM ADVERTISING REP Temperature 35.9 C (96.7 F) 10/04/2024 1:43 PM ADVERTISING REP Respiratory Rate 18 10/04/2024 1:43 PM ADVERTISING REP Oxygen Saturation 98% 10/04/2024 1:43 PM ADVERTISING REP Inhaled Oxygen Concentration - - Weight 91.3 kg (201 lb 3.2 oz) 12/04/2024 1:12 P M ADVERTISING REP Height 160 cm (5' 3) 12/04/2024 1:09 PM ADVERTISING REP Body Mass Index 35.64 12/04/2024 1:09 PM ADVERTISING REP Plan of Treatment Health Maintenance Due Date [...] 2024 12/06/2021, 02/26/2021, 02/05/2021 Influenza Vaccine (#1) 2025 09/15/2023, 2019 Fall Risk Assessment 09/09/2025 09/09/2024 Depression Screening 12/04/2025 12/04/2024 Medical Devices Implanted Type Area Malt Loader Device Identifier Shelf Expiration Date Model / Serial / Lot [employer] Suturebridge [place] Drill Guide Punch Tap Set Implant Achilles [id number] - [id number] Implanted:Qty: 1 on 10/04/2024 by Georgie Santacruz DPM at [facility] Right: Foot [employer] 06/26/2027 [id number] / / [id number] Insurance [employer] [place] Member Subscriber Plan / Payer (Ef fective 2014-Present) Name:Melissa Hayward Relation to Subscriber:Self Name:Melissa Hayward Payer ID:[id number] Group ID:Not on file Type:COMMERCIAL Address: [facility] [address] [place], [place] MEDICARE [employer] Member Subscriber Plan / Payer (Ef fective 2014-Present) Name:Melissa Hayward Relation to Subscriber:Self Name:Melissa Hayward Payer ID:[id number] Group ID:Not on file Type:[employer] Address: [facility] [address] [place], [place] Care Teams Bicycle Repairman Relationship Specialty Start Date End Date Audelia Evans NP PCP - General Nurse Practitioner 06/28/24 Georgie Santacruz DPM [address] [place] [id number] Consulting Physician Foot and Ankle Surg 10/04/24
[2025-07-29 16:12] LABS: Alanine Aminotransferase 46 U/L (6-35); Albumin Level 4.3 g/dL (3.5-5.1); Alkaline Phosphatase 93 U/L (38-126); Anion Gap 7 mmol/L (4-12); Aspartate Amino Transferase 60 U/L (14-36); Bilirubin,Total 0.5 mg/dL (0.2-1.3); Blood Urea Nitrogen 21 mg/dL (7-17); Calcium 10.1 mg/dL (8.4-10.2); Carbon Dioxide 28 mmol/L (22-30); Chloride 103 mmol/L (98-107); Cholesterol 266 mg/dL (0-200); Estimated Glomerular Filt Rate 52; Glucose 99 mg/dL (65-110); HDL Direct 46 mg/dL; Potassium 4.8 mmol/L (3.4-5.0); Sodium 138 mmol/L (137-145); Total Protein 8.1 g/dL (6.3-8.2); Triglycerides 224 mg/dL (<150)
== END 2025-07-29 10:03 | disposition home or self-care (01) ==
LOC: ANHGOSHLAB 10:04
PROVIDERS: PCP Internal Medicine; Visit Provider Internal Medicine Cardiovascular Disease
DX: E78.5 Hyperlipidemia, unspecified (principal)
CPT/HCPCS: 36415; 80053; 80061

== ENCOUNTER 2025-09-22 12:27 | Outpatient (CLI) | payer MEDICARE, OTHER, SELFPAY ==
--- NOTE | ~2025-09-22 | DEXA_ITS ---
Bone Density Report Name: CUATE DOMINGUEZ Age: 75 Sex: Female Ethnicity: White Date of : 1950 Indication: postmenopausal; screening for osteoporosis; parental hip fracture; height loss; cancer; Referring Provider: ISRAEL, DEVAN Study: Bone densitometry was performed. Exam Date: September 22, 2025 Accession number: [id number] Bone Density: Region BMD T-score Z-score Classification AP Spine(L2, L3, L4) 1.017 -0.6 2.0 Normal Femoral Neck (Left) 0.691 -1.4 0.7 Osteopenia Total Hip (Left) 0.814 -1.0 0.8 Normal Femoral Neck (Right) 0.709 -1.3 0.9 Osteopenia Total Hip (Right) 0.874 -0.6 1.3 Normal Total Hip Mean 0.844 -0.8 1.1 Normal World Health Organization criteria for BMD impression classify patients as: Normal (T-score at or above -1.0), Osteopenia (T-score between -1.0 and -2.5), or Osteoporosis (T-score at or below -2.5). 10-year Fracture Risk(1): Major Osteoporotic Fracture 17% Hip Fracture 8.3% Reported Risk Factors: [place] (), Neck BMD=0.691, BMI=36.4, parental fracture (1) FRAX(R) Version 3.08. Fracture probability calculated for an untreated patient. Fracture probability may be lower if the patient has received treatment. Previous Exams: -- Region Exam Age BMD T-score BMD Change BMD Change Date g/cm2 vs Baseline vs Previous -- AP Spine (L2-L4) 09/22/2025 75 1.017 -0.6 11.1%* -2.8%* 12/28/2021 71 1.046 -0.3 14.3%* 5.7%* 10/23/2017 67 0.990 -0.8 8.2%* 1.2% 10/19/2015 65 0.978 -0.9 6.9%* 3.4%* 10/03/2013 63 0.946 -1.2 3.3%* 3.3%* 08/12/2011 60 0.915 -1.5 Total Hip(Left) 09/22/2025 75 0.814 -1.0 -0.6% -4.3%* 12/28/2021 71 0.851 -0.7 3.9%* 3.3%* 10/23/2017 67 0.824 -1.0 0.5% 2.7% 10/19/2015 65 0.802 -1.1 -2.1% -2.7% 10/03/2013 63 0.825 -1.0 0.7% 0.7% 08/12/2011 60 0.819 -1.0 Total Hip(Right) 09/22/2025 75 0.874 -0.6 -1.1% 0.4% 12/28/2021 71 0.870 -0.6 -1.5% -0.5% 10/23/2017 67 0.875 -0.6 -0.9% 0.0% 10/19/2015 65 0.875 -0.5 -0.9% -1.1% 10/03/2013 63 0.885 -0.5 0.2% 0.2% 08/12/2011 60 0.883 -0.5 -- *Denotes significance at 95% confidence level, LSC for AP Spine = 0.022 g/cm2, LSC for Total Hip = 0.027 g/cm2 Rate of change results reflect vertebral levels common to all scans Clinical Information Provided by Patient: Parent has had a hip fracture Has used the following medications: Actonel (i.e. risedronate), Evista (i.e. raloxifene), Vitamin D, Calcium Has the following medical conditions: Cancer, breast cancer Patient maximum height was 63 Menopause Age: 38 No regular weight bearing exercise Drinks caffeinated beverages Onset of menses at age 14 Number of children 1 Impression: The patient has low bone mass, based on the Left Femoral Neck T-score. The patient has an estimated ten-year risk of hip fracture of 8.3% and an estimated ten-year risk of major fracture of 17%, based on the WHO FRAX algorithm. The patient has risk factors, including: parental hip fracture. The BMD for the AP Spine (L2-L4) decreased, changing by -2.8% since the last DXA exam. The BMD for the Total Hip(Left) decreased, changing by -4.3% since the last DXA exam. Discussion: BONE DENSITY IS LOW AT ONE OR MORE SKELETAL SITES. THE PATIENT'S BMD AND CLINICAL RISK FACTORS CONTRIBUTE TO THIS PATIENT'S INCREASED RISK OF FRACTURE. This patient's lowest T-score is low at one or more skeletal sites. It meets the World Health Organization's (WHO) criteria for ?low bone mass? (T-score between -1.0 and -2.5). The patient's 10-year risk of hip fracture as calculated by FRAX exceeds the threshold where pharmacological therapy is recommended by the National Osteoporosis Foundation (NOF). However, all treatment decisions require clinical judgment and consideration of individual patient factors, including patient preferences, comorbidities, previous drug use, risk factors not captured in the FRAX model (e.g., frailty, falls, vitamin D deficiency, increased bone turnover, interval significant decline in bone density) and possible under or overestimation of fracture risk by FRAX. The patient should follow a healthful lifestyle (good nutrition with adequate calcium and vitamin D, and appropriate weight-bearing exercise). Follow-Up: Consider a repeat BMD and Vertebral Fracture Assessment (VFA) exam in 2 years or sooner if medically necessary, to reassess this patient's status. Reported by: JONNIE on 09/22/2025 12:53:00 PM. Reviewed, dictated and finalized at location A.
== END 2025-09-22 12:28 | disposition home or self-care (01) ==
LOC: MICIMG 12:29
PROVIDERS: PCP Nurse Practitioner; Visit Provider Nurse Practitioner
DX: Z78.0 Asymptomatic menopausal state (principal); M85.88 Other specified disorders of bone density and structure, other site; M85.852 Other specified disorders of bone density and structure, left thigh; M85.851 Other specified disorders of bone density and structure, right thigh
CPT/HCPCS: 77080

== ENCOUNTER 2025-11-07 12:41 | Emergency (ER) | payer MEDICARE, OTHER, SELFPAY ==
--- NOTE | 2025-11-07 12:43 | ED_ITS ---
HPI - Ear Problem General Chief complaint: Upper Respiratory Infection Stated complaint: Ear Pain Time Seen by Provider: 11/07/25 12:42 Source: patient Mode of arrival: ambulatory Limitations: no limitations History of Present Illness HPI Narrative: Patient is a 75-year-old female who presents with right ear pain, congestion, sore throat for 2days. Patient has been taking Tylenol and Mucinex. Denies any fever, chills, nausea, vomiting, diarrhea. MD Complaint: ear pain Related Data Home Medications ?Medication ?Instructions ?Recorded ?Confirmed ?Last Taken ?Type xzqkcyjd-nprkgfp-orur-lutein tablet 1 tablet PO DAILY 01/23/23 11/07/25 09/27/23 History aspirin 81 mg tablet 81 mg PO DAILY 09/14/2310/2709/27/23 History cetirizine 5 mg-pseudoephedrine ER 1 tablet PO Q12H 11/07/25 Unknown History 120 mg tablet,extended release,12hr (Zyrtec-D) fluticasone propionate 50 1 spray intranasal DAILY 11/07/25 Unknown History mcg/actuation nasal spray,suspension (Flonase Allergy Relief) guaifenesin 1,200 mg tablet, 1,200 mg PO Q12H 07/09/25 11/07/25 Unknown History extended release 12 hr (Mucinex) Allergies Allergy/AdvReac Type Severity Reaction Status Date / Time Sulfa (Sulfonamide Allergy Intermediate Rash Verified 11/07/25 12:44 Antibiotics) Review of Systems Review of Systems: All systems reviewed & are unremarkable except as noted in HPI and below Constitutional: Constitutional: Denies body ache(s), Denies chills, Denies fever(s), Denies headache(s) and Denies malaise Eyes: Eyes: Denies blurry vision, Denies eye discharge and Denies irritation ENT: Reports otalgia, Denies headache(s), Reports nasal congestion, Denies nasal discharge and Reports sore throat Cardiovascular: Cardiovascular: Denies chest pain, Denies edema, Denies palpitations and Denies dyspnea on exertion Respiratory: Respiratory: Denies cough and Denies dyspnea on exertion Gastrointestinal: Gastrointestinal: Denies abdominal pain, Denies diarrhea, Denies nausea and Denies vomiting Musculoskeletal: Musculoskeletal: Denies back pain, Denies arthralgias and Denies muscle weakness Integumentary/Breasts: Skin/Breast: Denies pruritus and Denies rash Neurologic: Denies headache(s) Psychiatric: Psychiatric: Reports no additional psychiatric complaints Endocrine: Endocrine: Denies palpitations PMFSH Past Medical History Medical History Peripheral venous insufficiency COVID-15 December 2021 Foot pain left foot 1974 Ruptured cervical disc repaired 2004 History of TIA (transient ischemic attack) March 21, 2019 Hemorrhoids Cervical dystonia 1999 Cataract Osteopenia 2010 Osteoarthritis right knee 2017 Allergies Cervical vertebral fusion Former smoker Obesity (BMI 30-39.9) Breast cancer 1988 GUANAKO (obstructive sleep apnea) 2015 HLD (hyperlipidemia) HTN (hypertension) TIA (transient ischemic attack) Surgical History Surgical History S/P peripheral artery angioplasty with stent placement Left leg History of neck surgery cervical disc surgery 06 and 07 H/O foot surgery 1974, 09/2024, heel spur removal and Achilles tendon shave History of skin surgery basal 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 2012 History of bilateral mastectomy 1988 Family History Family History Father Lung cancer History of angina Mother Diabetes mellitus Hypertension Sibling Hypertension Heart disease Social History Social History Social History: Caffeine- tea/soda Smoking status: Former smoker Smoking end date: 11/27/75 Alcohol intake: never Substance use: never Substance use type: does not use Lack of Transportation: No Lack of Food: Never True Current Housing: I Have Housing Concerned About Future Housing: No Difficulty Paying Gas/Electric Bills: No Difficulty Paying for Meds: No Currently Unemployed: No Education: Bachelor's Degree Difficulty w/ Childcare or Family Care: No Living arrangements: with family Additional living arrangements comments: Occupation/Education: retired Gender identity (if verbalized by the patient): Female Sexual Orientation (if Verbalized by the Patient): Straight or Heterosexual Spiritual care concerns: No Agree to blood products: Yes Comments At time of signature, agree with nursing past medical, surgical, social and family history. There is no relevant family history pertinent to the presenting complaint? Exam Const: General: cooperative, healthy appearing, no acute distress and well nourished Nutritional Appearance: well nourished Orientation/consciousness: patient oriented x3 Limitations: no limitations HENMT: Head: normal to inspection, normocephalic and atraumatic Ears: hearing grossly normal bilaterally, EAC's normal, no periauricular adenopathy and TM abnormal bulging on the right and erythematous on the right Face/Nose/Sinus: Normal external nose present, Normal nares present, Normal nasal mucous membranes and turbinates present, No nasal discharge present, normal facial exam and sinuses nontender Face and sinus: normal facial exam and sinuses nontender Mouth: Yes Normal oral and palatal mucosa present, Yes lip normal, Yes tongue normal and Yes moist mucous membranes Throat: posterior oropharynx normal, tonsils normal and uvula midline Eyes: General: appearance normal, both eyes and all related structures Alignment and Position: alignment normal and position normal Eyelids: eyelids normal Pupils: Equal, round and reactive pupils present EOM: EOMs intact bilaterally Neck: Neck: normal visual inspection, full ROM, no lymphadenopathy and supple Chest: Chest palpation & inspection: normal inspection of the chest Resp: Effort & Inspection: normal respiratory effort and able to speak in complete sentences Auscultation: clear to auscultation bilaterally, no crackles, no rales, no rhonchi and no wheezes Cardio: Rate: regular rate Rhythm: regular rhythm Heart sounds: S1 normal heart sound present and S2 normal heart sound present Skin: General skin exam: normal color and no rashes or lesions noted Neuro: General: patient oriented x3 and moves all extremities Cranial nerves: Yes Equal, round and reactive pupils present Cognition (Neuro): normal cognition Speech: normal speech Gait exam (Neuro): Normal gait present Extrem: General: normal to inspection and full ROM Psych: Appearance: grossly normal and well kempt Mental Status: mental st atus grossly normal Speech and movement: Normal speech and movement present Course Course Emergency Course: Patient is aware of diagnosis, understands and agrees to treatment plan. Anticipatory guidance given. Patient agrees to follow-up as directed and is aware of reasons to seek care at the emergency department. Portions of this record may have been created with voice recognition software Level of Care: Express Care Visit Vital Signs Vital signs: Vital Signs Temperature 36.1 C L 11/07/25 12:50 Pulse Rate 72 11/07/25 12:50 Respiratory Rate 18 11/07/25 12:50 Blood Pressure 183/75 H 11/07/25 12:50 Pulse Oximetry 99 11/07/25 12:50 Temperature 36.1 C L 11/07/25 12:50 Pulse Rate 72 11/07/25 12:50 Respiratory Rate 18 11/07/25 12:50 Blood Pressure 183/75 H 11/07/25 12:50 Pulse Oximetry 99 11/07/25 12:50 MDM MDM Narrative Medical decision making narrative: Will treat patient with antibiotics for ear infection. Discussed discontinuing Mucinex as it may be elevating her blood pressure. Pt well hydrated appearing, in no respiratory distress, hemodynamically stable. Recommend supportive care. The patient is stable at time of discharge the clinical impression was discussed and the patient was given the opportunity to ask questions, which were addressed as completely as possible given the information available at present. Anticipatory guidance and return to care precautions were discussed and the importance of primary care follow-up was stressed and encouraged. The patient voiced understanding of the plan, indications to return, and the need for follow-up. Exam findings show no acute concerns or changes Patient is appropriate for outpatient treatment and follow-up. Differential Diagnosis Differential Diagnosis: Differential diagnosis considered: otitis media, otitis externa, otitis effusion, foreign body, cerumen impaction, viral syndrome? Medical Records I have reviewed the following patient records and this information was taken into consideration when formulating the assessment and plan.: previous clinic visits Discharge Plan Discharge Clinical Impression: Otitis media Qualifiers: Otitis media type: suppurative Chronicity: acute Laterality: right Recurrence: non-recurrent Spontaneous tympanic membrane rupture: without spontaneous rupture Qualified Code(s): H66.001 - Acute suppurative otitis media without spontaneous rupture of ear drum, right ear Patient Disposition: Home Condition: Stable Instructions: Ear Infection (ED) Additional Instructions: Take antibiotics as directed. Recommend antihistamine such as Benadryl at night time and Zyrtec or Dot during the day until symptoms improve Flonase nasal spray, 1 spray in each nostril once daily until symptoms improve Also, recommend symptomatic treatment includes: rest, fluids, and increase humidity of the air at home. Recommend Acetaminophen as directed on the bottle to reduce fever, pain Please schedule a follow-up visit with your personal physician for further evaluation and treatment within 3-5days. If your symptoms persist, change or worsen significantly before you can contact your personal physician then please, without delay, go to the emergency department for further evaluation. Your blood pressure was elevated above 120/80 today at Urgent Care. This puts you above the threshold for follow up visit with a primary care provider. High blood pressure does not usually cause any symptoms, however it may lead to kidney failure, stroke, heart disease just to name a few if untreated . Many people are anxious when seeing a provider or nurse. As a result, you are not diagnosed with hypertension at this time unless your blood pressure is persistently high at two office visits at least one week apart. Some things that can help lower blood pressure are lifestyle modifications, such as light exercise, decreased salt in diet, and weight loss. It is important to follow up with a PCP about this within 1 week. Patient Language: Latvian Prescriptions: New amoxicillin 875 mg tablet 875 mg PO Q12H 7 Days Qty: 14 0RF No Action (DME) CPAP Pressure Change See Rx Instructions .Route .MEDSUPPLY Qty: 1 0RF Rx Instructions: Rx: Change pressure to CPAP 7 cm H2O with EPR of 2. Add 15 minute Ramp Dx: G47.33 DME: [facility] [place] Physician: Dr. Gertrudis Victor DO (DME) CPAP Equipment See Rx Instructions .Route .MEDSUPPLY Qty: 1 0RF Rx Instructions: Rx: Repair/replace CPAP mask. Diffuser broke off on her standard nasal mask. Dx: G47.33 DME: [facility] [place] Physician: Dr. Gertrudis Victor, lisinopril 10 mg tablet See Rx Instructions .ROUTE .COMPLEX Qty: 90 3RF Dose Instruction: TAKE 1 TABLET BY MOUTH DAILY Rx Instructions: TAKE 1 TABLET BY MOUTH DAILY ezetimibe 10 mg tablet 10 mg PO DAILY Qty: 90 3RF dtaxjyka-rboqbtz-hjdj-lutein Tablet 1 tablet PO DAILY cetirizine-pseudoephedrine [Zyrtec-D] 5-120 mg tablet extended release 12 hr 1 tablet PO Q12H guaifenesin [Mucinex] 1,200 mg tablet extended release 12hr 1,200 mg PO Q12H fluticasone propionate [Flonase Allergy Relief] 50 mcg/actuation spray,suspension 1 spray intranasal DAILY Rx Instructions: administer into each nostril aspirin 81 mg Tablet 81 mg PO DAILY Follow-up/Referrals: Audelia Evans APRN [Primary Care Provider, Internal Medicine] - 3 Days Time of Disposition: 13:09
[2025-11-07 12:50] VITALS: BP 183/75; PULSE 72; RESP 18; TEMP 36.1; O2SAT 99
== END 2025-11-07 13:12 | disposition home or self-care (01) ==
PROVIDERS: Emergency Provider Nurse Practitioner Family; PCP Nurse Practitioner
DX: H66.001 Acute suppurative otitis media without spontaneous rupture of ear drum, right ear (principal); Z87.891 Personal history of nicotine dependence; I10 Essential (primary) hypertension; E78.5 Hyperlipidemia, unspecified; M85.80 Other specified disorders of bone density and structure, unspecified site; E66.9 Obesity, unspecified; Z68.34 Body mass index [BMI] 34.0-34.9, adult; M17.11 Unilateral primary osteoarthritis, right knee; Z86.16 Personal history of COVID-19; Z95.820 Peripheral vascular angioplasty status with implants and grafts; Z86.73 Personal history of transient ischemic attack (TIA), and cerebral infarction without residual deficits; Z85.3 Personal history of malignant neoplasm of breast; Z90.13 Acquired absence of bilateral breasts and nipples; Z79.82 Long term (current) use of aspirin
CPT/HCPCS: 99213; G0463